=== PATIENT | female | born 2005 | race Caucasian/White ===

== ENCOUNTER 2025-02-28 13:46 | Outpatient (AMB) | payer BC, SELFPAY ==
--- NOTE | 2025-02-28 14:04 | MHC.PC.OV ---
Vital Signs 02/28/25 14:16 Height 5 ft 4 in Weight 130 lb 4 oz BMI 22.4 BP 100/72 Blood Pressure Location Rt brachial Position Sitting Pulse 115 H Pulse Source Pulse Oximeter Temp 99.5 F Temp Source Temporal Artery Scan Pulse Oximetry (%) 98 Oxygen Delivery Method Room Air Intake Visit Reasons: Neurological disorder Intake Note: Jessica presents in the office today to establish care. Allergies No Known Allergies Allergy (Verified 02/28/25 14:07) Tobacco use date assessed: 02/28/25 Dental Screening Dental Screen Date: 02/28/25 Did you have a dental visit in the last 12 months?: Yes Did you have a dental problem in the last 6 months where you did not have access to dental care?: No Was dental information given to patient?: Patient has dentist HPI HPI Comments History of Present Illness Details This is a 19-year-old female with a past medical history of a functional neurologic disorder, anxiety disorder and seizures presenting to establish care. She is accompanied by her mother. I reviewed notes from Pediatrics. In October of 2020 she had a sudden onset of abnormal head and neck movements in the setting of increased anxiety. She was initially evaluated at the emergency department at [facility] with normal head and neck imaging. 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 She was treated with amoxicillin without resolution. Tics worsened including head banging and behavior changes and problems with speech and hand coordination. She started Prozac and was followed by integrative medicine. 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 In February she began to have seizure-like activity and was referred to Neurology. Differential included autoimmune encephalitis. She had a normal brain MR high and normal as encephalitis panel. She was seen at [facility] fall 2020. PANDAS thought to be unlikely. She was tapered off Prozac and put on fluvoxamine. She started guanfacine and stopped all antibiotics. She began working with occupational therapy. Working diagnosis of functional neurologic disorder. Sought multidisciplinary approach including Psychiatry, PT and OT. Also treated with the [facility]abella in the past. Attacks worsened by anxiety and stress but not directly caused by anxiety, instead maladaptive responses to major stressors. Since that time she has continued to have seizures once or twice a week. She has new concerns today about her heart rate. For the past couple of months she is experiencing increased heart rate. Heart rate has been as 170 and sustained this for at least 10 minutes. Reports heart rate increases when she stands up and she feels lightheaded and gets chest pain and mild shortness of breath. Patient reports device shows increase in heart rate when she stands by 30 beats per minute. When she was walking in here reports heart rate on her device was between 120-140. She went to urgent care at [facility] in [place] for symptoms. Reports she had an EKG and lab work. Denies syncope, nausea. Her paternal grandfather has cardiovascular disease. No family history of early CAD or sudden . Her brother has type 1 diabetes. She has been drinking water and eating regular meals. She avoids caffeine. She works as a hot dog vendor. She has and accommodation letter to have a stool at work. I renewed this for her today. She has a history of psoriasis. She does not have a sander and buffer currently. She would like to be seen at [facility]. She notices a lump in her neck for the past couple of months. It is not painful. ROS: Constitutional: No unexplained weight loss, fever, chills or night sweats. +fatigue Eyes: No vision changes, blurry vision, double vision Respiratory: Denies cough or wheezing Cardiovascular: See HPI. Gastrointestinal: No anorexia, nausea, vomiting or diarrhea. No abdominal pain or blood in stool. Neurologic: See HPI. Hematologic/Lymphatics: No bleeding or bruising. Endocrine: No cold or heat intolerance. No polyuria or polydipsia. Psychiatric: see HPI Physical exam: Constitutional: Alert, in no distress. Eyes: Pupils are equal, round and reactive to light. Extraocular muscles intact. Ear, Nose and Throat: Canals clear. TMs normal. Normal nasal mucosa. No nasal discharge. No oral lesions. Neck: Supple, Full range of motion. 1 cm rubbery nontender lump in the left submental region. Thyroid gland mildly enlarged Respiratory: Clear to auscultation. Cardiovascular: S1 S2 regular. No murmurs. Gastrointestinal: Abdomen soft, non-tender, non-distended. Normal bowel sounds. No palpable masses. Neurologic: No focal neurological deficits. Symmetric patellar reflexes. Moves all extremities spontaneously. Sensation intact bilaterally. Skin: Psoriatic plaques on the extensor surfaces of the upper extremities and on the scalp Extremities: Warm and well perfused. No clubbing, cyanosis or edema. Intact peripheral pulses Psychiatric: Normal mood and affect [facility] Medical History (Updated 03/01/25 @ 16:50 by TRES Kirkpatrick) Functional neurological symptom disorder with attacks or seizures Seizure disorder Anxiety Psoriasis Mass of soft tissue of neck Thyromegaly Chest pain Tachycardia Family History (Updated 02/28/25 @ 14:14 by Lexi De Leon MA) Maternal Grandfather Hypertension Hyperlipemia Paternal Grandfather Hypertension Brother Diabetes Social History (Updated 02/28/25 @ 14:14 by Lexi De Leon MA) Housing: House Alcohol intake: never Patient Tobacco Use Status: Never used Tobacco e-Cigarette/Vaping Use: Never Used Second Hand Smoke Exposure: No service: No Current occupational status: employed Current occupation: [employer] Manager Current occupational exposures/hazards: No Cognitive needs: No Hearing needs: No Vision needs: No Questionnaire PHQ-9 Over the last 2 weeks, how often have you been bothered by any of the following problems? 1. Little interest or pleasure in doing things: not at all 2. Feeling down, depressed, or hopeless: not at all 3. Trouble falling or staying asleep, or sleeping too much: more than half the days 4. Feeling tired or having little energy: nearly every day 5. Poor appetite or overeating: several days 6. Feeling bad about yourself - or that you are a failure or have let yourself or your family down: more than half the days 7. Trouble concentrating on things, such as reading the newspaper or watching television: not at all 8. Moving or speaking so slowly that other people could have noticed. Or the opposite - being so fidgety or restless that you have been moving around a lot more than usual: not at all 9. Thoughts that you would be better off or of hurting yourself in some way: not at all Total score: 8 Depression Screening Interpretation: Positive Depression Screening Follow-up: Existing condition Depression Screening Done: Yes 90263 - PHQ-9 Billing: Yes Source: Developed by Drs. Rodolfo Short, Niya Vallejo, Kevin Alves and colleagues, with an educational marisa from [employer]. Thrive Questionnaire Date Thrive assessed: 02/28/25 I am a: Patient What is your living situation today?: I have a steady place to live Within the past 12 months, did the food you bought not last and you didn't have the money to get more?: Never true Within the past 12 months, did you worry whether your food would run out before you got money to buy more?: Never true Do you have trouble paying for medicines?: No Do you have trouble getting transportation to medical appointments?: No Do you have trouble paying your heating and electricity bill?: No Do you have trouble taking care of your child, family member or friend?: No Do you have trouble with day-to-day activities such as bathing, preparing meals, shopping, managing finances, etc.?: No Are you currently unemployed and looking for a job?: No Are you interested in more education?: No Please select the resources that you would like help with: None Currently or been in a relationship where the following occur: No concerns reported THRIVE Score: 0 AUDIT C Alcohol Use Questionnaire (AUDIT-C) 1. How often do you have a drink containing alcohol?: Monthly or less 2. How many drinks containing alcohol do you have on a typical day when you are drinking?: 1 or 2 3. How often do you have six or more drinks on one occasion?: Never Total Score: 1 MARY JO-7 AMB Questionnaire MARY JO-7 Date MARY JO - 7 assessed: 02/28/25 Feeling nervous, anxious, or on edge: 2 = More than half the days Not being able to stop or control worryin = Several days Worrying too much about different things: 2 = More than half the days Trouble relaxin = Not at all Being so restless that it is hard to sit still: 1 = Several days Becoming easily annoyed or irritable: 1 = Several days Feeling afraid as if something awful might happen: 0 = Not at all Total MARY JO-7 score (0-4 normal; 5-9 mild; 10-14 moderate; 15-21 severe): 7 Source: Developed by Drs. Rodolfo Short, Niya Vallejo, Kevin Alves and colleagues, with an educational marisa from [employer]. MARY JO-7 Assessment Billing MARY JO-7 Assessment Tool: MARY JO-7 Assessment 12461 ACT Questionnaire In the past 4 weeks, how much of the time did your asthma keep you from getting as much done at work, school or at home?: None of the time During the past 4 weeks, how often have you had shortness of breath?: More than once a day During the past 4 weeks, how often did your asthma symptoms wake you up at night or earlier than usual in the morning?: Not at all During the past 4 weeks, how often have you had to use your rescue inhaler or nebulizer medication?: Not at all How would you rate your asthma control during the past 4 weeks?: Completely controlled Score: 21 Physical exam (Primary Care) Vital Signs: Last Vital Signs Temp 99.5 F 02/28/25 14:16 Pulse 115 H 02/28/25 14:16 BP 100/72 02/28/25 14:16 Pulse Ox 98 02/28/25 14:16 Oxygen Delivery Method Room Air 02/28/25 14:16 BMI result Body Mass Index 22.4 Tobacco/Smoking Status: Tobacco use Status Tobacco use date assessed 02/28/25 02/28/25 14:20 Patient Tobacco Use Status Never used Tobacco 02/28/25 14:20 e-Cigarette/Vaping Use Never Used 02/28/25 14:20 PHQ-9: PHQ-9 Score PHQ-9: Total score 8 02/28/25 17:26 Depression Screening Interpretation: Positive Depression Screening Follow-up: Existing condition Thrive Assessment: Date of Thrive Assessment Date Thrive assessed 02/28/25 02/28/25 14:20 Currently or been in a relationship where the following occur: No concerns reported Office Procedures EKG Details: EKG shows normal sinus rhythm and ventricular rate of 93 beats per minute [id number], Complete Coding Level of Care Code New Pt Level 4 (18965) Complex EM visit Add On G2211 Diagnoses Tachycardia R00.0 Chest pain R07.9 Thyromegaly E01.0 Anxiety F41.9 Psoriasis L40.9 Mass of soft tissue of neck M79.89 Functional neurological symptom disorder with attacks or seizures F44.5 CPT Codes EKG - CPT: 52153-[id number], Complete ([id number]) Additional Codes MARY JO-7 Assessment Billing - MARY JO-7 Assessment Tool: MARY JO-7 Assessment 51720 ([id number]) PHQ-9 - 25434 - PHQ-9 Billing: Yes ([id number]) Assessment & Plan Assessment & Plan (1) Tachycardia: Code(s): R00.0 - Tachycardia, unspecified Category: Medical Plan: EKG today shows normal sinus rhythm. Initially she did have mild tachycardia. Differential includes POTS, hyperthyroidism, anxiety causing sinus tachycardia, SVT. Holter monitor ordered. Refer to Cardiology. Warning signs warranting ER evaluation reviewed with the patient. Avoid caffeine, stimulants and alcohol. Stay well hydrated throughout the day and eat regular meals. Reviewed the importance of stress reduction and sleep. (2) Chest pain: Code(s): R07.9 - Chest pain, unspecified Category: Medical Plan: Associated with tachycardia. EKG shows no ischemic changes or heart block. Proceed with echocardiogram and cardiology consult. Check D-dimer, troponin, BNP. (3) Thyromegaly: Code(s): E01.0 - Iodine-deficiency related diffuse (endemic) goiter Category: Medical Plan: Ultrasound ordered. (4) Anxiety: Code(s): F41.9 - Anxiety disorder, unspecified Category: Medical Plan: We will discuss referral to Psychiatry/Psychology for multidisciplinary approach at her next visit. Check TSH. (5) Psoriasis: Code(s): L40.9 - Psoriasis, unspecified Category: Medical Plan: Refer to [facility]. (6) Mass of soft tissue of neck: Code(s): M79.89 - Other specified soft tissue disorders Category: Medical Plan: Ultrasound ordered. Check CBC and TSH. (7) Functional neurological symptom disorder with attacks or seizures: Code(s): F44.5 - Conversion disorder with seizures or convulsions Category: Medical Plan: Patient underwent extensive workup and was ultimately given working diagnosis of functional neurologic disorder by [facility] Neurology. She does not have a neurologist that she sees routinely anymore. Refer to [facility]. We will need to obtain notes from [facility]. Plan Follow up in 6 weeks. Orders: Orders Vitamin B12 and Folate 02/28/25 D64.9 - Anemia, unspecified, R00.0 - Tachycardia, unspecified, R07.9 - Chest pain, unspecified, R53.83 - Other fatigue TSH reflex Free T4 02/28/25 R00.0 - Tachycardia, unspecified, R07.9 - Chest pain, unspecified, R53.83 - Other fatigue Complete Blood Count Auto Diff 02/28/25 R00.0 - Tachycardia, unspecified, R07.9 - Chest pain, unspecified, R53.83 - Other fatigue B Type Natriuretic Peptide 02/28/25 E11.9 - Type 2 diabetes mellitus without complications, R00.0 - Tachycardia, unspecified, R07.9 - Chest pain, unspecified, R53.83 - Other fatigue US soft tiss head and/or neck 02/28/25 M79.89 - Other specified soft tissue disorders ECG holter monitor 48 hour Today R00.0 - Tachycardia, unspecified AMB EKG-In Office 02/28/25 R00.0 - Tachycardia, unspecified Vitamin D 25-OH (D2 and D3) 02/28/25 M85.80 - Other specified disorders of bone density and structure, unspecified site, R00.0 - Tachycardia, unspecified, R07.9 - Chest pain, unspecified, R53.83 - Other fatigue Ferritin 02/28/25 D64.9 - Anemia, unspecified, R00.0 - Tachycardia, unspecified, R07.9 - Chest pain, unspecified, R53.83 - Other fatigue Magnesium 02/28/25 R00.0 - Tachycardia, unspecified, R07.9 - Chest pain, unspecified, R53.83 - Other fatigue IRON PROFILE 02/28/25 D64.9 - Anemia, unspecified, R00.0 - Tachycardia, unspecified, R07.9 - Chest pain, unspecified, R53.83 - Other fatigue Comprehensive Met. Panel 02/28/25 R00.0 - Tachycardia, unspecified, R07.9 - Chest pain, unspecified, R53.83 - Other fatigue Troponin-I High Sensitivity 02/28/25 R00.0 - Tachycardia, unspecified, R07.9 - Chest pain, unspecified, R53.83 - Other fatigue D Dimer High Sensitivity 02/28/25 R00.0 - Tachycardia, unspecified, R07.9 - Chest pain, unspecified, R53.83 - Other fatigue Lyme IgG/IgM w/reflex to WB 02/28/25 R00.0 - Tachycardia, unspecified, R07.9 - Chest pain, unspecified, R53.83 - Other fatigue CA echo transthoracic complete 02/28/25 R00.0 - Tachycardia, unspecified, R07.9 - Chest pain, unspecified US thyroid 02/28/25 E01.0 - Iodine-deficiency related diffuse (endemic) goiter, R00.0 - Tachycardia, unspecified, R07.9 - Chest pain, unspecified Referrals Cardiology Referral R00.0 - Tachycardia, unspecified, R07.9 - Chest pain, unspecified Neurology Referral F44.5 - Conversion disorder with seizures or convulsions Dermatology Referral L40.9 - Psoriasis, unspecified
[2025-02-28 14:16] VITALS: BP 100/72; PULSE 115; TEMP 37.5; O2SAT 98; BMI 22.4
--- OUTSIDE RECORDS SUMMARY | 2025-02-28 14:59 | XMS_ITS | Clinical Summary ---
Author Organization [facility] Address [address] [place] [address] Phone Care Team Providers Care Pigskin Trimmer Name Role Phone Unavailable Primary Care Provider Unavailabl e Allergies Active Allergy Reactions Criticality Noted Date Comments Environmental 04/08/2021 Medications hydrOXYzine 25 MG tabletIndications:An xiety Take 1 tablet (25 mg total) by mouth 3 (three) times a day as needed for anxiety. 30 tablet 4 Active Levocetirizine Dihydrochloride (XYZAL PO) Take by mouth. Active Isibloom 0.15-30 MG-MCG per tabletIndications:Pa inful menstruation TAKE 1 TABLET BY MOUTH DAILY 84 tablet 5 Active Active Problems Problem Noted Date Diagnosed Date Scoliosis concern 07/04/2024 Overview (07/04/2024): Mild asymmetry- many years post menarchal. 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 [facility] ER normal head and neck imaging. 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 Tics worsened-all over, head banging, behavior changes, significant anxiety and mood changes, problems with speech and hand coordination. Started prozac to help with her mood. Followed by integrative medicine Dr. Roth for a short while. 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 treated with multiple rounds of different abx. Thought could be due to many different allergies. Treated with atovaquone. 03/02: began to have seizure like activity. referral to [facility] neurology-ddx autoimmune encephalitis. Normal brain MRI and normal encephalitis panel. 06/02-08/02: [facility] tic clinic Dr. Vallejo-unlikely PANDAs, taper off prozac not helpful and start fluvoxamine. Start guanfacine. Stop all abx. Working with OT. 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 neurology Dr. Dennis. 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 Multidisciplinary treatment approach: psychiatry to treat underlying depression/anxiety, PT and OT to work through triggers, behavioral therapists. 12/01: Dr. Dennis dx functional movement disorder. Share features with tics, worsened by anxiety and stress but not directly caused by anxiety, instead maladaptive responses to major stressors cause changes in brain function. Continue working with OT/PT to recognize triggers and learn adaptive skills, add in CBT. 07/04/24: having seizures 1-2x a week. Encouraged to make a follow up appt with Neuro. Assessment & Plan (07/04/2024 8:45 AM EDT): Has not seen neuro in a few days years. Seizures triggered by stress or not eating. Last seizure a couple days ago. Having them 1-2x a week which is a slight increase over the past couple months. Patient encouraged to call Neuro to make a follow up appointment. Assessment & Plan (04/19/2023 1:35 PM EDT): Doing very well currently, working with Dad Assessment & Plan (02/03/2022 2:14 PM EDT): Followed by [facility] tic and movement clinic and neurology; Dr. Dennis and Dr. Vallejo. Dx of functional movement disorder. Much improved this past year. Tics mostly confined to head and neck now and decreasing in frequency. Had another episode of fainting in the winter, nonepileptic seizures can be part of the disorder as well. Was on guanfacine but recent issue with filling it and ultimately stopped it. Feels fine without it. OT next visit in February. Continue follow ups with specialists as scheduled. Generalized anxiety disorder 10/06/2021 Overview (12/24/2021): 11/02-06/02: prozac up to 40mg. 08/02: per [facility] Dr. Vallejo taper off prozac and start Fluvoxamine, dosing guidelines per MCPAP. 12/01: 150mg fluvoxamine. Has therapist and may be in with psychiatrist soon. 01/01: per Dr. Dennis [facility] neuro, thinks increase in fluvoxamine caused increased hyperreflexia and recommended titrating back down to 100mg. Waiting on psychiatry. Assessment & Plan (07/04/2024 8:44 AM EDT): SSRIs stopped last year- no longer seeing psychiatrist. Feeling well. PHQ 9 score 2. Taking hydroxyzine only as needed. Refilled to have in times of stress to help minimize risk of seizures due to stress. Assessment & Plan (04/19/2023 1:35 PM EDT): Seeing Herlinda Shields, overcoming well Assessment & Plan (10/01/2022 11:30 AM EST): Doing really well. meds managed by psychiatrist now. Remains on fluvoxamine. Assessment & Plan (02/03/2022 2:15 PM EDT): Much improved over the year on Luvox. Titrated down to 100mg last month. Therapist every other week now. Feels she is doing much better. Enjoys the therapy sessions. Discussed option of continuing to titrate down as she feels fit. Keep me updated, and if interested can try a decrease down to 75mg. Ok to keep filling and will recheck end of summer at next [facility]. 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 10/03: start OCP Apri. 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 Periods consistent and pain has improved. Taking Midol which helps. Assessment & Plan (04/19/2023 1:37 PM EDT): OCP, has not had a period in 2 months, not sexually active, wants to get the implnat, sending to OBGYN- gave Jessica the number. Assessment & Plan (02/03/2022 2:11 PM EDT): Well managed on OCPs. Ok continuing to fill. Assessment & Plan (04/08/2021 3:02 PM EDT): Has repeat ovarian u/s next week. Discussed possibility of starting OCPs to help manage. She does admit to migraines with auras so will likely need to stay away from estrogen containing pills. Assessment & Plan (03/12/2021 1:02 PM EDT): We will repeat her ovarian ultrasound in 4-6 weeks due to left ovarian cyst. This could be causing her painful periods. Discussed that they can resolve on their own and would treat with nsaids, however if persistent can treat with OCPs. Sebopsoriasis 03/25/2016 Assessment & Plan (04/19/2023 1:37 PM EDT): Clobetasol works well Assessment & Plan (04/09/2020 2:25 PM EDT): Waiting to hear back for rescheduled derm apt. Uses fluocinolone scalp oil as needed Resolved Problems Problem Noted Date Diagnosed Date Resolved Date Cat bite of hand, left, initial encounter 04/14/2023 04/19/2023 Assessment & Plan (04/19/2023 1:35 PM EDT): On Augmentin, healing nicely Panic disorder 10/06/2021 04/19/2023 Abnormal ECG 04/03/2021 12/11/2021 Overview (12/11/2021): Abnormal EKG when on zpack, prolonged QT, resolved. Normal EKG 04/01. Behavior concern 03/03/2021 12/11/2021 Other insomnia 03/03/2021 04/19/2023 Overview (12/11/2021): Trial of trazodone by Dr. Roth Assessment & Plan (04/08/2021 3:01 PM EDT): Stopped the trazodone, sleeping better these days. Assessment & Plan (03/12/2021 1:01 PM EDT): Neurologist started her on trazodone last week and she is finally sleeping. Previously was taking hydroxyzine and was not able to sleep with that. Motor and vocal tic disorder 11/24/2020 12/11/2021 Assessment & Plan (04/08/2021 3:01 PM EDT): Followed by [facility] neurology, cardiology, and integrative medicine-working diagnosis of PANDAS. Will have apt at [facility] with tic specialist. Brain MRI normal, EKG normal, EEG normal, autoimmune encephalitis panel normal. Restarted zpack yesterday which in the past did seem to help symptoms but had to stop it due to a prolonged QT but was just cleared by cardiology to restart it. New medication cyproheptadine recently added in to help increase her appetite. Has follow up with Dr. Roth this week and mom will reach out to [facility] to plan next follow up. Assessment & Plan (03/12/2021 1:03 PM EDT): Motor and vocal tics have continued to progress these last 4-5 months, with maybe a little lessening since school has let out this past month. Most recently evaluated at [facility] neurology on 03/03/21 and underwent a brain MRI under sedation which was found to be normal for a working diagnosis of autoimmune encephalitis. An ovarian ultrasound was also done to rule out ovarian teratoma as those can be seen with autoimmune encephalitis. An incidental finding of ovarian cyst on the left was found and will plan to repeat the ultrasound in 4-6 weeks. She has undergone significant testing through integrative medicine in [place] and being treated for lyme and allergies. We will repeat her EKG due to prior prolonged QT interval. In the last week she also started having seizure like movements, and will have an EEG next week-its possible these could be vasovagal as she admits to not eating and drinking much these days and occur after long walks or a hike, are brief, and she is aware of what is happening. All in all, still unsure of the exact cause of these debilitating and progressive abnormal movements. She has a follow [facility] next week and a follow up [facility] with [facility] end of this month. Assessment & Plan (11/24/2020 4:40 PM EDT): Follow up with integrative medicine as scheduled on 11/26 to review abnormal labs. Continue taking augmentin daily and probiotics. Mom will ask if the difficulty with speech following naltrexone is a common side effect or something we need to be mindful of as I do not have any experience with this medication. Overall tics are lessening but come in waves. Continue with ongoing family and social supports, accommodations from school as needed. Feel free to reach out to me as questions arise or any new concerns. Encounters Date Type Department Care Team Description 01/24/2025 Telephone [facility] [address] [id number] Tamika Esparza NP Release of Records 12/12/2024 Refill [facility] [address] [id number] Keiry Melissa NP Painful menstruation from Last 3 Months Immunizations Immunization Administration Dates Next Due DTaP 03/06/2009, 5,03/31/2004, 004,2003 HPV Vaccine 9 Valent 03/19/2016,05/20/2015,03/18 Hep A, ped/adol 03/30/2018,03/28/2017 Hep B, ped/adol 07/13/2004,2003,2003 Hib (PRP-T) 01/05/2005, 4,01/28/2004, 004 IPV 03/06/2009, 4,01/28/2004, 004 Influenza, injectable, quadrivalent 08/16/2011 MMR 03/05/2008,09/29/2004 Meningococcal Conj (Menactra) MCV4P 04/09/2020,0 03/18/2015 Tdap 04/15/2023,03/18/2015 Varicella 03/05/2008,09/29/2004 Family History Medical History Relation Name Comments No Known Problems Brother Asthma Father No Known Problems Maternal Grandfather No Known Problems Maternal Grandmother Eczema Mother No Known Problems Paternal Grandfather Psoriasis Paternal Grandmother Relation Name Status Comments Brother Alive Father Alive Maternal Grandfather Alive Maternal Grandmother Alive Mother Alive Other Alive Paternal Grandfather Alive Paternal Grandmother Alive Social History Tobacco Use Types Packs/Day Years Used Date Smoking Tobacco: Never Smokeless Tobacco: Never Alcohol Use Standard Drinks/Week Comments Yes 0 (1 standard drink = 0.6 oz pur e alcohol) maybe monthly- socially Hunger/Food Answer Date Recorded In the last 12 months, did y ou or your family ever eat less than you felt you should because there wasn't enough money for food? No 07/02/2024 Stable Housing Answer Date Recorded Are you worried that in the next 2 months you may not have stable housing? No 07/02/2024 Transportation Concerns Answer Date Rec orded In the last 12 months, have you or your family ever had to go without healthcare because you didn't have a way to get there? No 07/02/2024 Hazards in Home Answer Date Recorded Think about the place you li ve. Do you have problems with any of the following? Pests (mice or roaches), mold, no/not working smoke detectors, water leaks, no window guards. No 2023 Financing Utilities Answer Date Recorde d In the last 12 months, has t he electric, gas, oil, or water company threatened to shut off your services in your home? No 07/02/2024 Safety at Home Answer Date Recorded Are you or your family worried about feeling saf e in your home? No 07/02/2024 Outside Support Answer Date Recorded Do you feel that you need mo re support from other people or programs to help you care for yourself or your family? No 07/02/2024 Understanding Health Concerns Answer Da te Recorded Do you need help understandi ng your or your child's healthcare needs (diagnosis, medications, plan, etc.)? No 07/02/2024 Financing Health Concerns Answer Date R ecorded In the last 12 months, was t here a time when your child needed to see a doctor or get medications or supplies but could not because of cost? No 07/02/2024 Missing School or Work Answer Date Slim rded Did you or your child miss s chool or work because of a health problem that could have been avoided? No 07/02/2024 Child Education Answer Date Recorded Do you have concerns about y our/your child's learning or behavior in school, preschool, or daycare? No 07/02/2024 Comments No Sex and Gender Information Value Date Recorded Sex Assigned at Not on file Legal Sex Female 6:09 PM EDT Gender Identity Female 11/06/2020 6:38 PM EST Sexual Orientation Straight 04/09/2020 2: 24 PM EDT Last Filed Vital Signs Vital Sign [place] Time Taken Comments Blood Pressure 112/64 07/04/2024 8:31 AM EDT Pulse - - Temperature 37.1 C (98.7 F) 04/14/2023 6:35 PM EDT Respiratory Rate - - Oxygen Saturation - - Inhaled Oxygen Concentration - - Weight 61.8 kg (136 lb 3.2 oz) 07/04/2024 8:31 A M EDT Height 163.8 cm (5' 4.5 ) 07/04/2024 8:31 AM EDT Body Mass Index 23.02 07/04/2024 8:31 AM EDT Plan of Treatment Health Maintenance Due Date Last Done Comments Men B Vaccine (1 of 2 - Standard) 2019 Influenza Vaccines (#1) 2024 08/16/2011 COVID-19 Vaccine (1 - season) 2024 DTaP,Tdap,and Td Vaccines (8 - Td or Tdap) 04/15/2033 04/15/2023, 03/18/2015, 03/06/2009, Additional history exists Hepatitis B Vaccines Completed 07/13/2004, 2003, 2003 HIB Vaccines Completed 01/05/2005, 03/13, 01/28/2004, Additional history exists MMR Vaccines Completed 03/05/2008, 09/29/2004 Varicella Vaccines Completed 03/05/2008, 09/29/2004 IPV Vaccines Completed 03/06/2009, 11/0 09/2003, 01/28/2004, Additional history exists HPV Vaccines Completed 03/19/2016, 04/2015, 03/18/2015 Hepatitis A Vaccines Completed 03/30/2018, 03/28/20 17 Meningococcal Vaccine Completed 04/09/2020, 015 Pneumococcal Vaccine Aged Out No long er eligible based on patient's age to complete this topic Procedures * Due to [place] [employer] law, this organization might not be sharing sensitive test results. Procedure Name Priority Date/Time Associated Diagnosis Comments CHLAMYDIA AND GONORRHEA, AMPLIFIED Routine 07/04/2024 8:37 AM EDT Well adult exam from Last 3 Months or Most Recently Relevant to Health Maintenance Results * Due to [place] [employer] law, this organization might not be sharing sensitive test results. * Chlamydia and Gonorrhea, Amplified (07/04/2024 8:37 AM EDT) C trach MARCELLE Negative Negative [facility] N gonorrhoeae MARCELLE Negative Negative [facility] Urine (Urine) 07/04/2024 8:3 7 AM EDT 07/04/2024 Comment:URINE Narrative [facility] - 07/05/2024 9:06 PM EDT Performed at: 01 - [facility] [address], [address], [place], [place] [id number] Metallurgical Laboratory Assistant: Joe Hinojosa MD, Phone: [phone] Keiry Melissa NP LAB MICROBIOLOGY - GENERAL O RDERABLES Final Result [facility] [address] [place] [address] from Last 3 Months or Most Recently Relevant to Health Maintenance Insurance [employer]
== END 2025-02-28 15:08 | disposition home or self-care (01) ==
LOC: HO.HMCFM 13:46
PROVIDERS: PCP Physician Assistant Medical; Visit Provider Physician Assistant Medical
DX: R00.0 Tachycardia, unspecified (principal); R07.9 Chest pain, unspecified; E01.0 Iodine-deficiency related diffuse (endemic) goiter; F41.9 Anxiety disorder, unspecified; L40.9 Psoriasis, unspecified; M79.89 Other specified soft tissue disorders; F44.5 Conversion disorder with seizures or convulsions

== ENCOUNTER → 2025-02-28 13:46 | Outpatient (BNVA) | payer BC, SELFPAY | PROVIDERS: PCP Physician Assistant Medical; Visit Provider Physician Assistant Medical | DX: Z76.89 Persons encountering health services in other specified circumstances (principal); R00.0 Tachycardia, unspecified; R07.9 Chest pain, unspecified; E01.0 Iodine-deficiency related diffuse (endemic) goiter; F41.9 Anxiety disorder, unspecified; L40.9 Psoriasis, unspecified; F44.5 Conversion disorder with seizures or convulsions; M79.89 Other specified soft tissue disorders; Z13.30 Encounter for screening examination for mental health and behavioral disorders, unspecified; Z13.31 Encounter for screening for depression | CPT/HCPCS: 93005; 96127; 96160 ==

== ENCOUNTER 2025-02-28 15:28 | Outpatient (REF) | payer BC, SELFPAY ==
[2025-02-28 17:26] LABS: MANUAL DIFF FLAG NO
[2025-02-28 17:34] LABS: B Type Natriuretic Peptide < 10 pg/mL (<100)
[2025-02-28 17:47] LABS: Basophils Percent Auto 0.4 % (0-2); Eosinophils Absolute Auto 0.2 X10*3/uL (0.0-0.4); Eosinophils Percent Auto 2.6 % (0-4); Hemoglobin 12.4 g/dl (12.0-16.0); Imm Gran Abs Auto 0.04 X10*3/uL (0.00-0.03); Imm Gran Pct Auto 0.5 % (0.0-0.4); Lymphocytes Percent Auto 24.4 % (20-40); Mean Corpuscular HGB Conc 32.6 g/dl (31.0-35.0); Mean Corpuscular Hemoglobin 27.1 pg (27.0-33.0); Mean Platelet Volume 9.5 fL (9.4-12.3); Monocytes Absolute Auto 0.5 X10*3/uL (0.1-1.2); Monocytes Percent Auto 6.1 % (2-11); Neutrophils Absolute Auto 5.4 x10*3/uL (2.0-8.3); Platelet Count 348 X10*3/uL (160-400); Red Blood Count 4.58 X10*6/uL (4.20-5.50); Red Cell Distribution Width 13.2 % (11.0-16.0); White Blood Count 8.2 X10*3/uL (4.8-10.8)
[2025-02-28 17:59] LABS: Troponin-I High Sensitivity < 2.7 ng/L (<3.5-17.0)
[2025-02-28 18:01] LABS: D Dimer High Sensitivity < 150 NG/ML
[2025-02-28 18:05] LABS: Alanine Aminotransferase 16 U/L (0-31); Albumin Level 4.3 g/dL (3.5-5.0); Alkaline Phosphatase 49 U/L (39-117); Anion Gap 10 (12-20); Aspartate Amino Transferase 21 U/L (5-31); Bilirubin Total 0.2 mg/dL (0.0-1.0); Blood Urea Nitrogen 11 mg/dL (9-16); Calcium 9.5 mg/dL (8.4-10.2); Carbon Dioxide 25 mmol/L (22-29); Chloride 108 mmol/L (96-108); Estimated Glomerular Filt Rate > 60; Glucose Random 74 mg/dL (60-115); Iron 69 mcg/dL (30-160); Magnesium 2.2 mg/dL (1.6-2.6); Percent Iron Saturation 16 % (15-50); Potassium 3.8 mmol/L (3.3-5.1); Sodium 139 mmol/L (135-145); Total Iron Binding Capacity 424 mcg/dL (228-428); Total Protein 7.8 g/dL (6.5-8.0); Unsaturated Iron Binding 355 ug/dL
[2025-02-28 18:23] LABS: Ferritin 6 ng/mL (10-122); TSH reflex Free T4 1.19 uIU/mL (0.32-4.0)
[2025-02-28 18:26] LABS: Vitamin B12 328 pg/mL (200-900)
[2025-03-01 17:38] LABS: Lyme Abs Screen <0.90 index
[2025-03-04 15:52] LABS: Vitamin D 25-OH, D2 <4 ng/mL; Vitamin D 25-OH, D3 74 ng/mL; Vitamin D 25-OH, Total 74 ng/mL (30-100)
== END 2025-02-28 15:29 | disposition home or self-care (01) ==
LOC: HO.WFDLDS 15:28
PROVIDERS: Visit Provider Physician Assistant Medical
DX: E11.9 Type 2 diabetes mellitus without complications (principal); M85.80 Other specified disorders of bone density and structure, unspecified site; D64.9 Anemia, unspecified; R53.83 Other fatigue; R07.9 Chest pain, unspecified; R00.0 Tachycardia, unspecified
CPT/HCPCS: 36415; 80053; 82306; 82607; 82728; 82746; 83540; 83735; 83880; 84443; 84484; 85025; 85379; 86617; 86618

== ENCOUNTER → 2025-03-18 13:03 | Outpatient (REF) | payer BC, SELFPAY ==
--- NOTE | 2025-03-18 13:07 | HM_ITS ---
* Total monitoring time 2 days. * Underlying rhythm is sinus with an average rate of 84/Min. * Rare supraventricular ectopy. * Rare ventricular ectopy. * No significant pauses or high-grade AV blocks. * Patient markers used with sinus rhythm. * Patient's symptoms including heart racing, dizziness, lightheadedness, shortness of breath, chest tightness, tunnel vision correlate with sinus tachycardia. MTDD
--- OUTSIDE RECORDS SUMMARY | 2025-03-18 13:31 | XMS_ITS | Clinical Summary ---
Author Organization [facility] Address [address] [place] [address] Phone Care Team Providers Care Plastic Block Boiler Reliner Name Role Phone Unavailable Primary Care Provider [...] movements in the setting of increased anxiety. [facility] ER normal head and neck imaging. [...] to have seizure like activity. referral to [facility] neurology-ddx autoimmune encephalitis. Normal brain MRI and normal encephalitis panel. 06/02-08/02: [facility] [place] [place] tic clinic Dr. Vallejo-unlikely PANDAs, taper off prozac not helpful and start fluvoxamine. Start guanfacine. Stop all abx. Working with OT. 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 Dennis. Working dx likely functional [...] Plan (02/03/2022 2:14 PM EDT): Followed by [facility] tic and movement clinic and neurology; Dr. [...] 11/02-06/02: prozac up to 40mg. 08/02: per [facility] [place] [place] Dr. Vallejo taper off prozac and start Fluvoxamine, dosing guidelines per MCPAP. 12/01: 150mg fluvoxamine. Has therapist and may be in with psychiatrist soon. 01/01: per Dr. Dennis [facility] [place] [place] neuro, thinks increase in fluvoxamine caused increased [...] will recheck end of summer at next [facility]. 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 10/03: start OCP Apri. 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 Periods [...] Plan (04/08/2021 3:01 PM EDT): Followed by [facility] neurology, cardiology, and integrative medicine-working diagnosis of PANDAS. Will have apt at [facility] with tic specialist. Brain MRI normal, EKG [...] week and mom will reach out to [facility] to plan next follow up. Assessment & Plan (03/12/2021 1:03 PM EDT): Motor and vocal tics have continued to progress these last 4-5 months, with maybe a little lessening since school has let out this past month. Most recently evaluated at [facility] neurology on 03/03/21 and underwent a brain [...] undergone significant testing through integrative medicine in [place] and being treated for lyme and allergies. [...] She has a follow up apt with [facility] next week and a follow up [facility] with [place] end of this month. Assessment & Plan [...] Team Description 01/24/2025 [facility]phone [facility] [address] [address] Tamika Esparza NP Release of Records from Last 3 Months Immunizations Immunization Administration [...] Vaccine (1 of 2 - Standard) 2019 COVID-19 Vaccine (1 - season) 2024 Influenza Vaccines (#1) 2025 08/16/2011 DTaP,Tdap,and Td Vaccines (8 - Td or Tdap) 04/15/2033 04/15/2023, 03/18/2015, 03/06/2009, Additional history exists Hepatitis B Vaccines Completed 07/13/2004, 2003, 2003 HIB Vaccines Completed 01/05/2005, 03/13, 01/28/2004, Additional history exists MMR Vaccines Completed 03/05/2008, 09/29/2004 Varicella Vaccines Completed 03/05/2008, 09/29/2004 IPV Vaccines Completed 03/06/2009, 09/2003, 01/28/2004, Additional history exists HPV Vaccines Completed 03/19/2016, 04/2015, 03/18/2015 Hepatitis A Vaccines Completed 03/30/2018, 03/28/20 17 Meningococcal Vaccine Completed 04/09/2020, 015 Pneumococcal Vaccine Aged Out No long er eligible based on patient's age to complete this topic Procedures * Due to [place] [employer] law, this organization might not be sharing sensitive test results. Procedure Name Priority Date/Time Associated Diagnosis Comments CHLAMYDIA AND GONORRHEA, AMPLIFIED Routine 07/04/2024 8:37 AM EDT Well adult exam from Last 3 Months or Most Recently Relevant to Health Maintenance Results * Due to [place] [employer] law, this organization might not be sharing sensitive test results. * Chlamydia and Gonorrhea, Amplified (07/04/2024 8:37 AM EDT) C trach MARCELLE Negative Negative [facility] N gonorrhoeae MARCELLE Negative Negative [facility] Urine (Urine) 07/04/2024 8:3 7 AM EDT 07/04/2024 Comment:URINE Narrative [facility] - 07/05/2024 9:06 PM EDT Performed at: 01 - [facility], [address], [place], [place] [id number] Research Center Director: Joe Hinojosa MD, Phone: [phone] Keiry Melissa NP LAB MICROBIOLOGY - GENERAL O RDERABLES Final Result [facility] [address] [place] [address] from Last 3 Months or Most Recently Relevant to Health Maintenance Insurance [facility] HMO
== END ==
LOC: HO.CARD 13:03
PROVIDERS: PCP Physician Assistant Medical; Visit Provider Physician Assistant Medical
DX: R00.0 Tachycardia, unspecified (principal)
CPT/HCPCS: 93225

== ENCOUNTER → 2025-03-18 13:07 | Outpatient (BNV) | payer BC, SELFPAY | PROVIDERS: PCP Physician Assistant Medical; Visit Provider Internal Medicine | DX: I49.3 Ventricular premature depolarization (principal) | CPT/HCPCS: 93227 ==

== ENCOUNTER → 2025-04-05 14:46 | Outpatient (REF) | payer BC, SELFPAY ==
--- NOTE | ~2025-04-05 | US_ITS ---
CLINICAL HISTORY: M79.89 - Other specified soft tissue disorders US Thyroid Comparison: None provided Findings: The thyroid parenchyma is normal echotexture. Right thyroid 5.6 x 1.4 x 1.6 cm. Left thyroid 4.8 x 1.4 x 1.6 cm. Thyroid isthmus 3 mm. There is a 1.3 cm TR 2 nodule within the inferior right lobe. This is not suspicious and does not require follow-up. There is no suspicious thyroid nodule. There are multiple lymph nodes within the soft tissues of the neck. Two left-sided submandibular lymph nodes were documented measuring 1.2 x 0.7 x 1.5 cm and 1.1 x 0.5 x 1.1 cm in size. There is a solitary level 4 lymph node within the left side of the neck measuring 0.9 x 0.7 x 1.0 cm. There are 2 left-sided level 3 lymph nodes measuring 1.6 x 0.5 x 1.0 cm and 1.6 x 0.5 x 1.2 cm in size . Lymph nodes are normal morphology. Impression: 1. There are no suspicious thyroid nodules. 2. There are multiple small lymph nodes within the soft tissues of the neck, most likely inflammatory. [employer] [place] [employer] TI-RADS Categories TR1 and TR2 nodules do not have follow-up recommendations TR3 (FNA >= 2.5cm, F/U >= 1.5cm at 1, 3, and 5 yrs) TR4 (FNA >= 1.5cm, F/U >= 1cm at 1, 2, 3, and 5 yrs) TR5 (FNA >= 1cm, F/U >= 0.5cm annually for up to 5 yrs) This document has been electronically signed by: Mary aDo MD on 04/05/2025 19:31:04
--- NOTE | 2025-04-05 14:48 | CA_ITS ---
Transthoracic Echocardiogram Patient (Last, First, Middle): Jessica Paige, Gender: Female Date of : 2005 Age: 19 Procedure Date: 04/05/2025 Procedure Type: Transthoracic Echocardiogram Location: OP Height: 162.56 cm Weight: 58.97 kg BSA: 1.63 m2 Heart Rate: 87 bpm BP: 115 / 65 mmHg Senior Restaurant Manager: DANK Referring MD: Dulce JOSHUA Symptoms: R00.0 - Tachycardia, unspecified Study Quality: Adequate ECG Rhythm: Sinus Conclusions: - Normal left ventricular size, thickness, systolic function, and wall motion. The visually estimated ejection fraction is between 55-60%. Diastolic function is normal for age. - Normal right ventricular cavity size and systolic function. Findings Left Ventricle Normal left ventricular size, thickness, systolic function, and wall motion. The visually estimated ejection fraction is between 55-60%. Diastolic function is normal for age. Right Ventricle Normal right ventricular cavity size and systolic function. Atria The left atrium is normal in size. The right atrium is normal in size. Aortic Valve Normal aortic valve structure and function. There is no aortic valve stenosis. There is trace (trivial) aortic valve regurgitation. Mitral Valve The mitral valve appears normal. There is trace mitral valve regurgitation. There is no mitral valve stenosis. Pulmonic Valve The pulmonic valve is normal. There is trace pulmonic valve regurgitation. Tricuspid Valve Normal tricuspid valve structure. There is trace tricuspid valve regurgitation. Great Vessels All visible segments of the aorta are normal in size. The visualized portions of the pulmonary artery and branches are normal. Venous The inferior vena cava is normal in size and collapses greater than 50% with inspiration. Pericardium/Pleural There is no evidence of pericardial effusion. Prior Study Comparison No prior study available for comparison. Measurements 2D Linear Measurements IVSd: 0.72 0.6-0.9/0.6-1.0 cm LVIDd: 4.69 3.9-5.3/4.2-5.9 cm LVIDd Index: 2.88 2.4-3.2/2.2-3.1 cm/m2 LVIDs: 2.89 2.0-3.6 cm LVPWd: 0.69 0.7-1.1 cm LA Diam: 3.10 2.7-3.8/3.0-4.0 cm LAIDs Index: 1.90 1.5-2.3 cm/m2 LV Mass: 128.66 67-162/88-224 g LV Mass Index: 78.93 43-95/49-115 g/m2 LVOT Diam: 1.90 3.0+(-)1.3 cm 2D Systolic Function EF 4C: 62.40 >55% EF 2C: 59.50 >55% EF BiP: 60.50 >55% Mitral Valve MV Pk E: 0.86 MV PK A: 0.60 MV Decel Time: 141.00 E/A: 1.40 E'Lateral: 15.00 E'Medial: 11.40 E/E' Med: 7.50 E/E' Lat: 5.70 PHT: 41.00 MVA PHT: 5.37 Decel Fallon: 6.07 Aortic Valve AoV Pk Florin: 1.41 AoV Mn Florin: 0.97 AoV VTI: 0.25 AoV Pk Grad: 8.00 Aov Mn Grad: 4.00 VISH Cont.VTI: 2.22 AI Pk Florin: 3.76 AI Fallon: 1.04 LVOT LVOT Pk Florin: 1.21 LVOT Mn Florin: 0.80 LVOT VTI: 0.20 LVOT Pk Grad: 6.00 LVOT Mn Grad: 3.00 LVOT Diam: 1.90 LVOT Area: 2.84 Diastolic Function MV Pk E: 0.86 MV Pk A: 0.60 E/A: 1.40 E'Medial: 11.40 E/E' Med: 7.50 E' Laterial: 15.00 E/E' Lat: 5.70 Right Ventricle TAPSE (mm): 24.30 TVS' Florin: 12.90 Tricuspid Valve TR Pk Florin: 1.85 TR Pk Grad: 14.00 RA Press: 3.00 RVSP: 17.00 Great Vessels Aorta Sinus of Valsalva: 2.90 2.0-3.5 cm Ao Asc: 2.80 2.1-3.4 cm Ao Arch: 1.90 Pulmonary Valve PV Pk Florin: 1.17 Peak PV Grad: 5.00 Updated in Other Vendor System with Status of Final Gaetano Bowen MD electronically signed on 04/07/2025 3:20:57 PM with status of Final
--- OUTSIDE RECORDS SUMMARY | 2025-04-05 14:48 | XMS_ITS | Clinical Summary ---
Author Organization [facility] Address [address] [place] [address] Phone Care Team Providers Care President Financial Institution Name Role Phone Rodolfo Medrano MD Primary Care Provider [phone]- [phone] Allergies No known active allergies Medications ISIBLOOM 0.15-0.03 mg per tablet Take 1 tablet by mouth daily. 09/04/2021 Active hydrOXYzine (ATARAX) 25 MG tablet Take 25 mg by mouth 3 (three) times a day as needed. 10/31/2020 Active fluvoxaMINE (LUVOX) 100 MG tablet Take 1 tablet (100 mg total) by mouth nightly at bedtime. 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 Not on alisa e 01/07/2023 Are you concerned about learning? Not on file 01/07/2023 No 01/07/2023 No 01/07/2023 Digital Access Answer Date Recorded No 02/02/2023 No 02/02/2023 Reliable internet access at home? Not on file 02/02/2023 Device with a working camera? Not on file Comments Unknown Sex and Gender Information Value Date Recorded Sex Assigned at Female 10/06/2021 6:02 AM EST Legal Sex Female 12:07 PM EDT Gender Identity Female 10/06/2021 6:02 AM EST Sexual Orientation Straight 10/06/2021 6: 02 AM EST Last Filed Vital Signs Vital Sign Reading Time Taken Comments Blood Pressure 122/77 03/02/2022 2:13 PM EDT Pulse 94 03/02/2022 2:13 PM EDT Temperature 36.7 C (98.1 F) 03/02/2022 2:13 PM EDT Respiratory Rate 18 12/26/2020 4:47 PM EDT Oxygen Saturation 97% 03/02/2022 2:13 PM EDT Inhaled Oxygen Concentration - - Weight 61.6 kg (135 lb 14.4 oz) 03/02/2022 2:13 PM EDT Height 165.1 cm (5' 5 ) 03/02/2022 2:13 PM EDT Body Mass Index 22.61 03/02/2022 2:13 PM EDT Plan of Treatment Upcoming Encounters Date Type Department Care Team ([facility] st Contact Info) Description 06/21/2025 9:00 AM EDT Office Visit [facility] Epilepsy Service [address] [place] [address], 8th Floor, [address] [place] [address] Eufemia Caputo MD,MPH,PhD [address] [place] [address] [email or web address] Health Maintenance Due Date Last Done Comments DEPRESSION SCREENING 2015 SMOKING Hx and SMOKELESS TOBACCO SCREENING 2016 CHLAMYDIA SCREENING 2019 MENINGOCOCCAL VACCINES (B) (1 of 2 - Standard) 2019 ADOLESCENT UNIVERSAL LIPID SCREENING 2020 HEPATITIS C SCREENING 2021 HIV ONE-TIME SCREENING (18-65 YEARS) 2021 COVID-19 VACCINE ( season) 2024 PAP SMEAR 2024 Adult Td,Tdap Booster 04/15/2033 04/15/2023, 015 COMBINED DTaP,Tdap,Td (8 - Td or Tdap) 04/15/2033 04/15/2023, 03/18/2015, 03/06/2009, Additional history exists HIB VACCINES Completed 01/05/2005, 03/13, 01/28/2004, Additional history exists MMR VACCINES Completed 03/05/2008, 09/29/2004 HPV VACCINES Completed 03/19/2016, 0 04/2015, 03/18/2015 HEPATITIS A VACCINES Completed 03/30/2018, 03/28/20 17 MENINGOCOCCAL VACCINES (ACWY) Completed 04/09/2020, 03/18/2015 PNEUMOCOCCAL VACCINES (0-49 years) Aged Out No longer eligible based on patient's age to complete this topic Medical Devices Not on file Insurance [facility] [place] [address] [place] [address] HMO POS HMO POS HMO [place] [address] [place] [address] [place] [address] [place] [address] [place] [address]O POS O POS [place] [address] [place] [address] HMO POS HMO POS O POS HMO [place] [address] [place] [address] HMO POS [facility] Care Teams President Financial Institution Relationship Specialty Start Date End Date Rodolfo Medrano MD [address] [place] [address] PCP - General Pediatrics 12/04/20 Additional Source Comments The information contained in this document represents components of the legal health record. It is not the complete legal health record.[facility]
--- OUTSIDE RECORDS SUMMARY | 2025-04-05 14:48 | XMS_ITS | Clinical Summary ---
Author Organization [facility] Address [address] [place] [address] Care Team Providers Care Hospice Superintendent Name Role Phone Unavailable Primary Care Provider Unavailabl e Allergies No known active allergies Medications Desogestrel-Ethi nyl Estradiol (ISIBLOOM PO) Take by mouth. Active Ferrous Sulfate (IRON PO) Take by mouth. Active levocetirizine (XYZAL) 5 MG tablet Take 5 mg by mouth every evening. Active ondansetron (ZOFRAN) 4 MG tablet Take 4 mg by mouth as needed for nausea or vomiting. Active hydrOXYzine HCl (ATARAX) 25 MG tablet Take 25 mg by mouth as needed. Active LORAZEPAM PO Take by mouth. Active Encounters Date Type Department Care Team Description 03/28/2025 Scanned Document [facility], [address], [place] [phone] Unknown 03/27/2025 Scanned Document [facility], [address], [place] [phone] Unknown 03/27/2025 Scanned Document [facility], [address], [address] [phone] Unknown from Last 3 Months Family History Medical History Relation Name Comments Arthritis Maternal Grandmother Arthritis Paternal Grandmother Psoriatic Arthritis Paternal Grandmother Relation Name Status Comments Father Alive Maternal Grandmother Mother Alive Paternal Grandmother Social History Tobacco Use Types Packs/Day Years Used Date Smoking Tobacco: Never Tobacco Cessation:Counseling Given: Not Answered Alcohol Use Standard Drinks/Week Comments Never 0 (1 standard drink = 0.6 oz pur e alcohol) Comments Unknown Sex and Gender Information Value Date Recorded Sex Assigned at Female 03/27/2025 12:17 PM EDT Legal Sex Female 12:15 PM EDT Gender Identity Female 03/27/2025 12:17 PM EDT Sexual Orientation Choose not to disclose 2024 12:17 PM EDT Plan of Treatment Upcoming Encounters Date Type Department Care Team (Late st Contact Info) Description 05/14/2025 9:00 AM EDT [facility] Visit [facility] [address] [facility] [facility], [address] [place] [phone] Gertrude Dos Santos MD [address] [facility] [address] [place] [address] Health Maintenance Due Date Last Done Comments Hepatitis C Virus Screening 2003 HIV Screening 2016 HPV Vaccines (1 - 3-dose series) 2018 DTaP/Tdap/Td Vaccines (1 - Tdap) 2022 Hepatitis B Vaccines (1 of 3 - 19+ 3-dose series) 2022 COVID-19 Vaccine ( - 2023-2 5 season) 2024 Pap Smear (Ages 21-65) 2024 Influenza Vaccine 04/12/2025 Pneumococcal Vaccine: Pediat cherelle (0-5 Years) and At-Risk Patients (6 to 49 Years) Aged Out No longer eligible b ased on patient's age to complete this topic
--- OUTSIDE RECORDS SUMMARY | 2025-04-05 14:48 | XMS_ITS | Clinical Summary ---
Author Organization [facility] Address [address] [place] [address] Phone Care Team Providers Care Funeral Greeter Name Role Phone Unavailable Primary Care Provider [...] movements in the setting of increased anxiety. [facility] ER normal head and neck imaging. [...] to have seizure like activity. 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 Normal brain MRI and normal encephalitis panel. 06/02-08/[place] [facility] [place] Vallejo-unlikely PANDAs, taper off prozac not helpful and start fluvoxamine. Start guanfacine. Stop all abx. Working with OT. Likely dx is functional neurological disorder 09/2021: [facility] neurology Dr. Dennis. Working dx [...] Plan (02/03/2022 2:14 PM EDT): Followed by [facility] tic and movement clinic and neurology; [...] 11/02-06/02: prozac up to 40mg. 08/02: [place] [facility] [place] Val[place]jo taper off prozac and start Fluvoxamine, dosing guidelines per MCPAP. 12/01: 150mg fluvoxamine. Has therapist and may be in with psychiatrist soon. 01/01: per Dr. Dennis [facility] [place], thinks increase in fluvoxamine caused [...] will recheck end of summer at next [facility]. Babesiasis 04/03/2021 Painful menstruation 03/03/2021 Overview (12/11/2021): 04/01: abd ultrasound recommended by [facility], L hemorrhagic ovarian cyst 05/02: repeat U/S, no suspicious hemorrhagic ovarian cyst seen. 10/03: start OCP Apri. 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 Periods [...] Plan (04/08/2021 3:01 PM EDT): Followed by [facility] neurology, cardiology, and integrative medicine-working diagnosis of PANDAS. Will have apt at [facility] with tic specialist. Brain MRI normal, [...] week and mom will reach out to [facility] to plan next follow up. Assessment & Plan (03/12/2021 1:03 PM EDT): Motor and vocal tics have continued to progress these last 4-5 months, with maybe a little lessening since school has let out this past month. Most recently evaluated at [facility] neurology on 03/03/21 and underwent a brain [...] undergone significant testing through integrative medicine in [place] and being treated for lyme and allergies. [...] She has a [facility] and a follow up [facility]CC with md end of this month. Assessment & Plan [...] Team Description 01/24/2025 [facility]phone [facility] [address] [address] Tamika Esparza NP Release of Records from [...] complete this topic Procedures * Due to [place] [employer] law, this organization might not be sharing sensitive test results. Procedure Name Priority Date/Time Associated Diagnosis Comments CHLAMYDIA AND GONORRHEA, AMPLIFIED Routine 07/04/2024 8:37 AM EDT Well adult exam from Last 3 Months or Most Recently Relevant to Health Maintenance Results * Due to [place] [employer] law, this organization might not be sharing sensitive test results. * Chlamydia and Gonorrhea, Amplified (07/04/2024 8:37 AM EDT) C trach MARCELLE Negative Negative [facility] N gonorrhoeae MARCELLE Negative Negative [facility] Urine (Urine) 07/04/2024 8:3 7 AM EDT 07/04/2024 Comment:URINE Narrative [facility] - 07/05/2024 9:06 PM EDT Performed at: 01 - [facility], [address], [place], [place] [id number] Ink Maker: Joe Hinojosa MD, Phone: [phone] Keiry Melissa NP LAB MICROBIOLOGY - GENERAL O RDERABLES Final Result [facility] [address] [place] [address] from Last 3 Months or Most Recently Relevant to Health Maintenance Insurance [facility] HMO [facility] HMO [facility] HMO
== END ==
LOC: HO.CARD 14:46
PROVIDERS: PCP Physician Assistant Medical; Visit Provider Physician Assistant Medical
DX: E01.0 Iodine-deficiency related diffuse (endemic) goiter (principal); M79.89 Other specified soft tissue disorders; R00.0 Tachycardia, unspecified; R07.9 Chest pain, unspecified
CPT/HCPCS: 76536; 93306

== ENCOUNTER → 2025-04-05 14:48 | Outpatient (BNV) | payer BC, SELFPAY | PROVIDERS: PCP Physician Assistant Medical; Visit Provider Internal Medicine Cardiovascular Disease | DX: I35.1 Nonrheumatic aortic (valve) insufficiency (principal) | CPT/HCPCS: 93306 ==

== ENCOUNTER → 2025-04-05 15:58 | Outpatient (BNV) | payer BC, SELFPAY | PROVIDERS: PCP Physician Assistant Medical; Visit Provider Radiology Diagnostic Radiology | DX: R59.0 Localized enlarged lymph nodes (principal) | CPT/HCPCS: 76536 ==

== ENCOUNTER 2025-04-11 15:36 | Outpatient (AMB) | payer BC, SELFPAY ==
--- OUTSIDE RECORDS SUMMARY | 2025-04-11 15:39 | XMS_ITS | Clinical Summary ---
Author Organization [facility] Address [address] [place] [address] Phone Care Team Providers Care Charging Manipulator Name Role Phone Rodolfo Medrano MD Primary Care Provider +1- [phone] Allergies No known active allergies Medications ISIBLOOM [...] Upcoming Encounters Date Type Department Care Team ([facility] st Contact Info) Description 06/21/2025 9:00 AM EDT Office [place] [facility] [place] [address] [place] [address], 8th Floor, [address] [place] [address] Eufemia Caputo MD,MPH,PhD [address] [place] [address] [email or web address] Health Maintenance Due Date Last Done Comments [...] Devices Not on file [facility] [place] [address] [address] [place] [address] HMO POS HMO POS HMO [place] [address] [place] [address] [place] [place] [address] [place] [address] [place], [place] [address]O POS O POS [place] [address] [place] [address] HMO POS HMO POS O POS HMO [place] [address] [place] [address] HMO [facility] Care Teams Charging Manipulator Relationship Specialty Start Date End Date Rodolfo Medrano MD [address] [place] [address] PCP - General Pediatrics 12/04/20 Additional Source Comments The information contained in this document represents components of the legal health record. It is not the complete legal health record.[facility]
--- OUTSIDE RECORDS SUMMARY | 2025-04-11 15:39 | XMS_ITS | Clinical Summary ---
Author Organization [facility] Address [address] [place] [address] Care Team Providers Care Laborer Egg Producing Farm Name Role Phone Unavailable Primary Care Provider [...] Team Description 03/28/2025 Scanned Document [facility], [address], [place] [phone] Unknown 03/27/2025 Scanned Document [facility], [address], [place] [phone] Unknown 03/27/2025 Scanned Document [facility], [address], [address] [phone] Unknown from Last 3 Months [...] 9:00 AM EDT Office Visit [facility] [address] [facility] [place] [phone] Gertrude Dos Santos MD [address] [facility] [address] [place] [address] Health Maintenance Due Date Last Done Comments [...]
--- OUTSIDE RECORDS SUMMARY | 2025-04-11 15:39 | XMS_ITS | Clinical Summary ---
Author Organization [facility] Address [address] [place] [address] Phone Care Team Providers Care Doping Supervisor Name Role Phone Unavailable Primary Care Provider [...] movements in the setting of increased anxiety. [facility] ER normal head and neck imaging. [...] to have seizure like activity. 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 Normal brain MRI and normal encephalitis panel. 06/02-08/02: [facility] [place]. Vallejo-unlikely PANDAs, taper off prozac not helpful and start fluvoxamine. Start guanfacine. Stop all abx. Working with OT. Likely dx is functional neurological disorder 09/2021: [facility] neurology Dr. Dennis. Working dx likely functional [...] Plan (02/03/2022 2:14 PM EDT): Followed by [facility] tic and movement clinic and neurology; [...] 11/02-06/02: prozac up to 40mg. 08/02: per [facility] [place] Vallejo taper off prozac and start Fluvoxamine, dosing guidelines per MCPAP. 12/01: 150mg fluvoxamine. Has therapist and may be in with psychiatrist soon. 01/01: per Dr. Dennis [facility] neuro, thinks increase in fluvoxamine caused increased [...] will recheck end of summer at next [facility]. Babesiasis 04/03/2021 Painful menstruation 03/03/2021 Overview (12/11/2021): 04/01: abd ultrasound recommended by [facility], L hemorrhagic ovarian cyst 05/02: repeat U/S, no suspicious hemorrhagic ovarian cyst seen. 10/03: start OCP Apri. 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 Periods [...] Plan (04/08/2021 3:01 PM EDT): Followed by [facility] neurology, cardiology, and integrative medicine-working diagnosis of PANDAS. Will have apt at [facility] with tic specialist. Brain MRI normal, [...] week and mom will reach out to [facility] to plan next follow up. Assessment & Plan (03/12/2021 1:03 PM EDT): Motor and vocal tics have continued to progress these last 4-5 months, with maybe a little lessening since school has let out this past month. Most recently evaluated at [facility] neurology on 03/03/21 and underwent a brain [...] undergone significant testing through integrative medicine in [place] and being treated for lyme and allergies. [...] She has a follow up apt [facility] week and a follow up WCC with ri end of this month. Assessment & Plan [...] Team Description 01/24/2025 [facility]phone [facility] [address] [address] Tamika Esparza NP Release of Records from [...] complete this topic Procedures * Due to [place] [employer] law, this organization might not be sharing sensitive test results. Procedure Name Priority Date/Time Associated Diagnosis Comments CHLAMYDIA AND GONORRHEA, AMPLIFIED Routine 07/04/2024 8:37 AM EDT Well adult exam from Last 3 Months or Most Recently Relevant to Health Maintenance Results * Due to [place] [employer] law, this organization might not be sharing sensitive test results. * Chlamydia and Gonorrhea, Amplified (07/04/2024 8:37 AM EDT) C trach MARCELLE Negative Negative [facility] N gonorrhoeae MARCELLE Negative Negative [facility] Urine (Urine) 07/04/2024 8:3 7 AM EDT 07/04/2024 Comment:URINE Narrative [facility] - 07/05/2024 9:06 PM EDT Performed at: 01 - [facility], [address], [place], [place] [id number] Power Line Installer: Joe Hinojosa MD, Phone: [phone] Keiry Melissa NP LAB MICROBIOLOGY - GENERAL O RDERABLES Final Result [facility] [address] [place] [address] from Last 3 Months or Most Recently Relevant to Health Maintenance Insurance [facility]
--- NOTE | 2025-04-11 15:41 | A.OFFPC_ITS ---
Vital Signs 04/11/25 15:44 Height 5 ft 4 in Weight 133 lb BMI 22.8 BP 102/58 L Blood Pressure Location Lt brachial Position Sitting Pulse 80 Pulse Source Pulse Oximeter Temp 98 F Temp Source Temporal Artery Scan Pulse Oximetry (%) 99 Oxygen Delivery Method Room Air Intake Visit Reasons: 30 minute follow up Intake Note: Jessica presents in the office for a follow up to anxiety and labs. Allergies jin (cherries) Allergy (Verified 04/11/25 15:43) Swelling Tobacco use date assessed: 04/11/25 Dental Screening Dental Screen Date: 04/11/25 Did you have a dental visit in the last 12 months?: Yes Did you have a dental problem in the last 6 months where you did not have access to dental care?: No Was dental information given to patient?: Patient has dentist HPI HPI Comments History of Present Illness Details This is a 19-year-old female with a past medical history of a functional neurologic disorder, anxiety disorder and seizures presenting for follow up. Documented previously: I reviewed notes from Pediatrics. In October of 2020 she had a sudden onset of abnormal head and neck movements in the setting of increased anxiety. She was initially evaluated at the emergency department at [facility] with normal head and neck imaging. 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 She was treated with amoxicillin without resolution. Tics worsened including head banging and behavior changes and problems with speech and hand coordination. She started Prozac and was followed by integrative medicine. 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 In February she began to have seizure-like activity and was referred to Neurology. Differential included autoimmune encephalitis. She had a normal brain MR high and normal as encephalitis panel. She was seen at [facility] fall 2020. PANDAS thought to be unlikely. She was tapered off Prozac and put on fluvoxamine. She started guanfacine and stopped all antibiotics. She began working with occupational therapy. Working diagnosis of functional neurologic disorder. Sought multidisciplinary approach including Psychiatry, PT and OT. Also treated with the Izabella in the past. Attacks worsened by anxiety and stress but not directly caused by anxiety, instead maladaptive responses to major stressors. Since that time she has continued to have seizures once or twice a week. She has new concerns today about her heart rate. For the past couple of months she is experiencing increased heart rate. Heart rate has been as 170 and sustained this for at least 10 minutes. Reports heart rate increases when she stands up and she feels lightheaded and gets chest pain and mild shortness of breath. Patient reports device shows increase in heart rate when she stands by 30 beats per minute. When she was walking in here reports heart rate on her device was between 120-140. She was referred back to [facility] Neurology, and she has an appointment scheduled in June. She would like to go back on anxiety medication. Anxiety significantly impacts her, and she thinks it does contribute to her symptoms. During seizures he is conscious and able to remain seated, but her head falls down and she has mild convulsions of her extremities sometimes. 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 Continues to get paresthesias in her legs interm ittently. Reports prior treatment with Prozac was ineffective. She took fluvoxamine which was effective. It was discontinued in 2022. She does not feel depressed. Denies SI or HI. She is awaiting a callback from [facility]iology for her consult. Holter monitor and echocardiogram were negative aside from recording sinus tachycardia. She has a history of psoriasis. She saw [facility], and she was referred to Rheumatology for concerns about psoriatic arthritis. She has a consult in [place] in May. She had an ultrasound of the neck completed due to report of a 1 cm lump in the left submental region. Ultrasound showed lymph nodes with normal morphology. She has a thyroid nodule but does not meet criteria for biopsy or follow up ultrasound. ROS: Constitutional: No unexplained weight loss, fever, chills or night sweats. +fatigue Eyes: No vision changes, blurry vision, double vision Respiratory: Denies cough or wheezing Cardiovascular: See HPI. Gastrointestinal: No anorexia, nausea, vomiting or diarrhea. No abdominal pain or blood in stool. Neurologic: See HPI. Hematologic/Lymphatics: No bleeding or bruising. Endocrine: No cold or heat intolerance. No polyuria or polydipsia. Psychiatric: see HPI Physical exam: Constitutional: Alert, in no distress. Eyes: Pupils are equal, round and reactive to light. Extraocular muscles intact. Ear, Nose and Throat: Canals clear. TMs normal. Normal nasal mucosa. No nasal discharge. No oral lesions. Neck: Supple, Full range of motion. No palpable masses. Respiratory: Clear to auscultation. Cardiovascular: S1 S2 regular. No murmurs. Neurologic: No focal neurological deficits. Symmetric patellar reflexes. Moves all extremities spontaneously. Sensation intact bilaterally. Extremities: Warm and well perfused. No clubbing, cyanosis or edema. Intact peripheral pulses Psychiatric: Normal mood and affect [facility] Medical History (Updated 03/26/25 @ 13:22 by TRES Kirkpatrick) Lower extremity weakness Low ferritin Functional neurological symptom disorder with attacks or seizures Seizure disorder Anxiety Psoriasis Mass of soft tissue of neck Thyromegaly Chest pain Tachycardia Family History Maternal Grandfather Hypertension Hyperlipemia Paternal Grandfather Hypertension Brother Diabetes Social History (Updated 04/11/25 @ 15:44 by Lexi De Leon MA) Housing: House Alcohol intake: never Patient Tobacco Use Status: Never used Tobacco e-Cigarette/Vaping Use: Never Used Second Hand Smoke Exposure: No service: No Current occupational status: employed Current occupation: [employer] Work Current occupational exposures/hazards: No Cognitive needs: No Hearing needs: No Vision needs: No Questionnaire PHQ-9 Over the last 2 weeks, how often have you been bothered by any of the following problems? 1. Little interest or pleasure in doing things: not at all 2. Feeling down, depressed, or hopeless: several days 3. Trouble falling or staying asleep, or sleeping too much: several days 4. Feeling tired or having little energy: nearly every day 5. Poor appetite or overeating: nearly every day 6. Feeling bad about yourself - or that you are a failure or have let yourself or your family down: several days 7. Trouble concentrating on things, such as reading the newspaper or watching television: several days 8. Moving or speaking so slowly that other people could have noticed. Or the opposite - being so fidgety or restless that you have been moving around a lot more than usual: several days 9. Thoughts that you would be better off or of hurting yourself in some way: not at all Total score: 11 Source: Developed by Drs. Rodolfo Short, Niya Vallejo, Kevin Alves and colleagues, with an educational marisa from [employer]. Thrive Questionnaire Date Thrive assessed: 02/22/25 I am a: Patient What is your living situation today?: I have a steady place to live Within the past 12 months, did the food you bought not last and you didn't have the money to get more?: Never true Within the past 12 months, did you worry whether your food would run out before you got money to buy more?: Never true Do you have trouble paying for medicines?: No Do you have trouble getting transportation to medical appointments?: No Do you have trouble paying your heating and electricity bill?: No Do you have trouble taking care of your child, family member or friend?: No Do you have trouble with day-to-day activities such as bathing, preparing meals, shopping, managing finances, etc.?: No Are you currently unemployed and looking for a job?: No Are you interested in more education?: No Please select the resources that you would like help with: None Currently or been in a relationship where the following occur: No concerns reported THRIVE Score: 0 MARY JO-7 AMB Questionnaire MARY JO-7 Date MARY JO - 7 assessed: 02/28/25 Source: Developed by Drs. Rodolfo Short, Niya Vallejo, Kevin Alves and colleagues, with an educational marisa from [employer]. Physical exam (Primary Care) Vital Signs: Last Vital Signs Temp 98 F 04/11/25 15:44 Pulse 80 04/11/25 15:44 BP 102/58 L 04/11/25 15:44 Pulse Ox 99 04/11/25 15:44 Oxygen Delivery Method Room Air 04/11/25 15:44 BMI result Body Mass Index 22.8 Tobacco/Smoking Status: Tobacco use Status Tobacco use date assessed 04/11/25 04/11/25 15:47 Patient Tobacco Use Status Never used Tobacco 04/11/25 15:44 e-Cigarette/Vaping Use Never Used 04/11/25 15:44 PHQ-9: PHQ-9 Score PHQ-9: Total score 11 04/11/25 16:09 Thrive Assessment: Date of Thrive Assessment Date Thrive assessed 02/22/25 04/11/25 15:41 Currently or been in a relationship where the following occur: No concerns reported Coding Level of Care Code Est Pt Level 4 (23776) Complex EM visit Add On G2211 Diagnoses Tachycardia R00.0 Chest pain R07.9 Anxiety F41.9 Functional neurological symptom disorder with attacks or seizures F44.5 Assessment & Plan Assessment & Plan (1) Tachycardia: Code(s): R00.0 - Tachycardia, unspecified Category: Medical Plan: She is awaiting a call back from [facility] to schedule the consult. Holter monitor and echocardiogram were reassuring. Warning signs warranting ER evaluation reviewed with the patient. Avoid caffeine, stimulants and alcohol. Stay well hydrated throughout the day and eat regular meals. Reviewed the importance of stress reduction and sleep. Treat anxiety as noted below. (2) Chest pain: Code(s): R07.9 - Chest pain, unspecified Category: Medical Plan: Associated with tachycardia. EKG showed no ischemic changes or heart block. Echocardiogram negative. (3) Anxiety: Code(s): F41.9 - Anxiety disorder, unspecified Category: Medical Plan: TSH normal. She is seeing a therapist. She would like to restart anxiety medication. Discussed SSRI black box warning, potential side effects and administration. She will retry fluvoxamine 50 mg daily. (4) Functional neurological symptom disorder with attacks or seizures: Code(s): F44.5 - Conversion disorder with seizures or convulsions Category: Medical Plan: Patient underwent extensive workup and was ultimately given working diagnosis of functional neurologic disorder by [facility] Neurology. Treat anxiety as above. She is going to follow up with [facility] Neurology in June as planned due to continued seizure-like activity and paresthesias. Plan Follow up in 4 weeks. 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 Reports a exacerbation of symptoms when she is working with heavier dogs and she has to use more physical effort. Letter provided. Medications: New fluvoxamine 50 mg PO BEDTIME 90 tabs 0RF
[2025-04-11 15:44] VITALS: BP 102/58; PULSE 80; TEMP 36.6; O2SAT 99; BMI 22.8
== END 2025-04-11 16:21 | disposition home or self-care (01) ==
LOC: HO.HMCFM 15:36
PROVIDERS: PCP Physician Assistant Medical; Visit Provider Physician Assistant Medical
DX: R00.0 Tachycardia, unspecified (principal); R07.9 Chest pain, unspecified; F41.9 Anxiety disorder, unspecified; F44.5 Conversion disorder with seizures or convulsions

== ENCOUNTER 2025-05-16 11:03 | Outpatient (AMB) | payer BC, SELFPAY ==
--- OUTSIDE RECORDS SUMMARY | 2025-05-14 09:00 | XMS_ITS | Encounter Summary ---
Author Organization [facility] Address [address] [place] [id number] Care Team Providers Care Laborer Drying Department Name Role Phone Dulce Ross Primary Care Provider [phone] Reason for Visit * Rheumatology (Routine) - Closed Specialty Diagnoses / Procedures Referred By Contzi t Referred To Contact Diagnoses Joint pain Jillian Latham MD [address] [place] [address] Phone: tel: fax: Gertrude Dos Santos MD [address] [place] [address] Phone: tel: fax: Referral ID Status Reason Start Date Expiration Date Visits Re quested Visits Authorized [id number] Closed 03/27/2025 03/27/2026 1 1 Encounter Details Date Type Department Care Team (Late st Contact Info) Description 05/14/2025 9:00 AM EDT [facility] [address], [address] [place] [phone] Gertrude Dos Santos MD [address] [place] [address] [address] [place] [address] Arthralgia, unspecified joint (Primary Dx); Psoriasis ; Mid back pain Social History Tobacco Use Types Packs/Day Years [...] not to disclose 2024 12:17 PM EDT documented as of this encounter Progress Notes * Gertrude Dos Santos MD - 05/14/2025 9:29 AM EDT Images from the original note were not included. Assessment & Plan The patient is a 19-year-old very nice young lady with long history of psoriasis, history of goiterand anemia, who was referred by Dr. Jillian Latham for further evaluation for joint pain, for possible underlying autoimmune inflammatory CTD. Joint pain affecting shoulders, knees and ankles in the settings of long history of psoriasis-rule out psoriatic arthritis. She has no active synovitis. I reviewed the blood work done couple of months ago which showed normal CBC and CMP, normal vitaminD and TSH and normal iron studies. Check inflammatory markers and check x-rays of the ankles to evaluate for enthesopathy and x-rays of the knees. She has also 1 year history of thoracic spine pain. Check x-rays to evaluate for syndesmophytes. Check HLA-B27 which can be positive in 30% of patients with psoriatic arthritis. In addition to inflammatory markers I will check serology including RF and CCP and EDMOND to evaluate for underlying inflammatory arthritides. The patient has also a mild form of hypermobility which may account for joint pain. She also complains of postural tachycardia. She follows with cardiology. She had an echocardiogram. Recommend to discuss with the tank officer the concern for EDS with vascular involvement. Recommend physical therapy for muscle strengthening. Goiter. Her recent TSH couple of months ago was normal. Psoriasis. Active lesions scalp and armpits. Follows with dermatology. She was diagnosed when she was 8. Rule out psoriatic arthritis as above. Diagnoses and all orders for this visit: Arthralgia, unspecified joint - HLA - B27 Antigen - Erythrocyte Sedimentation Rate (ESR) - C-REACTIVE PROTEIN - Analyzer???,EDMOND,IFA With Reflex Titer/Pattern, Systemic Autoimmune Panel 1 - RHEUMATOID FACTOR - Cyclic Citrullinated Peptide IgG Ab - XR Knee 1 or 2 views-Bilateral; Future - XR Knee 1 or 2 views-Bilateral - XR Ankle 2 views-Bilateral; Future - XR Ankle 2 views-Bilateral Psoriasis - HLA - B27 Antigen - Erythrocyte Sedimentation Rate (ESR) - C-REACTIVE PROTEIN - Analyzer???,EDMOND,IFA With Reflex Titer/Pattern, Systemic Autoimmune Panel 1 - RHEUMATOID FACTOR - Cyclic Citrullinated Peptide IgG Ab Mid back pain - HLA - B27 Antigen - Erythrocyte Sedimentation Rate (ESR) - C-REACTIVE PROTEIN - Analyzer???,EDMOND,IFA With Reflex Titer/Pattern, Systemic Autoimmune Panel 1 - RHEUMATOID FACTOR - Cyclic Citrullinated Peptide IgG Ab - XR Thoracic spine 2 views; Future - XR Thoracic spine 2 views Subjective Subjective Patient ID: Jessica Paige is a 19 y.o. female. HPI The patient is a 19-year-old very nice young lady with long history of psoriasis, history of goiterand anemia, who was referred by Dr. Jillian Latham for further evaluation for joint pain, for possible underlying autoimmune inflammatory CTD. For the last several months she has been noticing joint pain affecting the knees, the shoulders andthe ankles. She rates the pain as a 2 on a 1-10 pain scale during daytime and goes up to 5 at night. There is no associated joint stiffness or swelling. The knees pop back when she steps. She can pop out the pinky MCP joint. She also complains of mid back pain which she thinks is due to her work. She is a occupational health specialist. She walks half a mile before she has to stop due to joint pains. In 2020 she was diagnosed with functional neurological disorder at [facility] General neurology department. She has motor tics and verbal tics and abnormal gait. She is seeing a tank officer (had only 1 visit so far), for nausea and tachycardia with standing up. She was advised to start regular exercises and has follow-up with him this month. She has canker sores almost every month. They last about a week. She does not take anything in particular. For her joint pain she takes sometimes naproxen or Advil. Her grandmother has psoriasis and psoriatic arthritis. The patient denies Raynaud's phenomenon. She has active psoriatic lesions of the scalp and in the armpits. She denies history of iritis or uveitis. No history of inflammatory bowel disorders. No diarrhea with blood in the stools. Review of Systems Review of Systems Constitutional: Negative. Negative for activity change, appetite change, fatigue, fever and unexpected weight change. HENT: Negative. Negative for congestion, dental problem, ear pain, mouth sores, postnasal drip, sinus pressure, sinus pain and sore throat. Eyes: Negative. Negative for photophobia, pain, redness and visual disturbance. Respiratory: Negative. Negative for cough, shortness of breath and wheezing. Cardiovascular: Negative. Negative for chest pain, palpitations and leg swelling. Gastrointestinal: Negative. Negative for abdominal distention, abdominal pain, blood in stool, constipation, diarrhea and nausea. Endocrine: Negative. Negative for cold intolerance and heat intolerance. Genitourinary: Negative. Negative for dysuria, flank pain, frequency and hematuria. Musculoskeletal: Positive for arthralgias and back pain. Negative for joint swelling and myalgias. Skin: Negative for rash and wound. Psoriasis of the scalp and armpits Allergic/Immunologic: Negative. Neurological: Negative. Negative for seizures, weakness, numbness and headaches. Hematological: Negative. Negative for adenopathy. Does not bruise/bleed easily. Psychiatric/Behavioral: Negative. Negative for behavioral problems and sleep disturbance. The patient is not nervous/anxious. Past Medical History: Past Medical History: Diagnosis Date Anemia Goiter Psoriasis History reviewed. No pertinent surgical history. Social History Socioeconomic History Marital status: Single Spouse name: Not on file Number of children: Not on file Years of education: Not on file Highest education level: Not on file Occupational History Not on file Tobacco Use Smoking status: Never Smokeless tobacco: Not on file Substance and Sexual Activity Alcohol use: Never Drug use: Never Sexual activity: Not on file Other Topics Concern Not on file Social History Narrative Not on file Social Drivers of Health Financial Resource Strain: Not on file Food Insecurity: Not on file Transportation Needs: Not on file Physical Activity: Not on file Stress: Not on file Social Connections: Not on file Housing Stability: Not on file Family History Problem Relation Age of Onset Arthritis Maternal Grandmother Psoriatic Arthritis Paternal Grandmother Arthritis Paternal Grandmother Objective Objective There were no vitals filed for this visit. Physical Exam Constitutional: Appearance: She is well-developed. HENT: Head: Normocephalic and atraumatic. Eyes: Conjunctiva/sclera: Conjunctivae normal. Cardiovascular: Rate and Rhythm: Normal rate and regular rhythm. Heart sounds: Normal heart sounds. Pulmonary: Effort: Pulmonary effort is normal. No respiratory distress. Breath sounds: Normal breath sounds. No wheezing or rales. Abdominal: General: There is no distension. Palpations: Abdomen is soft. There is no mass. Tenderness: There is no abdominal tenderness. There is no guarding. Musculoskeletal: General: Normal range of motion. Cervical back: Normal range of motion and neck supple. Comments: BT hands DIPs, PIPs, MCPs, wrists, elbows, shoulders, knees, ankles, MTPs with no tenderness, no synovial swelling and good ROM. Hips with no pain to internal-external rotation. No SI joints tenderness. Signs of hypermobility with increased range of motion in the wrists and MCPs as well as internal rotation of the shoulders and hyperextension of the knees. Lymphadenopathy: Cervical: No cervical adenopathy. Skin: General: Skin is warm and dry. Findings: Lesion (Psoriasis of the scalp and armpits) present. No rash. Neurological: Mental Status: She is alert and oriented to person, place, and time. Motor: No abnormal muscle tone. Coordination: Coordination normal. Deep Tendon Reflexes: Reflexes normal. documented in this encounter Plan of Treatment Upcoming Encounters Date Type Department Care Team (Late st Contact Info) Description 07/10/2025 8:20 AM EDT [facility] [address] [place] [phone] Gertrude Dos Santos MD [address] [place] [address] [address] [place] [address] Scheduled Orders Name Type Priority Associated Diagnoses Orde r Schedule HLA - B27 Antigen Lab Routine Arthralgia, unspecified joint Psoriasis Mid back pain Ordered: 05/14/2025 Erythrocyte Sedimentation Rate (ESR) Lab Routine Arthralgia, unspecified joint Psoriasis Mid back pain Ordered: 05/14/2025 C-REACTIVE PROTEIN Lab Routine Arthralgia, unspecified joint Psoriasis Mid back pain Ordered: 05/14/2025 Analyzer , EDMOND,IFA With Reflex Titer/Pattern, Systemic Autoimmune Panel 1 Lab Routine Arthralgia, unspecified joint Psoriasis Mid back pain Ordered: 05/14/2025 RHEUMATOID FACTOR Lab Routine Arthralgia, unspecified joint Psoriasis Mid back pain Ordered: 05/14/2025 Cyclic Citrullinated Peptide IgG Ab Lab Routine Arthralgia, unspecified joint Psoriasis Mid back pain Ordered: 05/14/2025 XR Thoracic spine 2 views Imaging Routine Mid back pain Expected: 05/14/2025, Expires: 05/14/2026 XR Knee 1 or 2 views-Bilateral Imaging Routine Arthralgia, unspecified joint Expected: 05/14/2025, Expires: 05/14/2026 XR Ankle 2 views-Bilateral Imaging Routine Arthralgia, unspecified joint Expected: 05/14/2025, Expires: 05/14/2026 documented as of this encounter Visit Diagnoses Diagnosis Arthralgia, unspecified joint- Primary Psoriasis Other psoriasis Mid back pain documented in this encounter Care Teams Laborer Drying Department Relationship Specialty Start Date End Date Dulce Ross PA [address] [place] [id number] PCP - General General Medicine 05/14/25 documented as of this encounter
--- NOTE | 2025-05-16 11:10 | MHC.PC.OV ---
Vital Signs 05/16/25 11:16 Height 5 ft 4 in Weight 130 lb 5 oz BMI 22.4 BP 100/68 Blood Pressure Location Lt brachial Position Sitting Pulse 93 Pulse Source Pulse Oximeter Temp 98.4 F Temp Source Temporal Artery Scan Pulse Oximetry (%) 98 Oxygen Delivery Method Room Air Intake Visit Reasons: med check Intake Note: Jessica presents in the office today for medication check in. Allergies jin (cherries) Allergy (Verified 05/16/25 11:15) Swelling Tobacco use date assessed: 05/16/25 Dental Screening Dental Screen Date: 05/16/25 Did you have a dental visit in the last 12 months?: Yes Did you have a dental problem in the last 6 months where you did not have access to dental care?: No Was dental information given to patient?: Patient has dentist HPI HPI Comments History of Present Illness Details This is a 19-year-old female with a past medical history of a functional neurologic disorder, anxiety disorder and seizures presenting for follow up. Documented previously: I reviewed notes from Pediatrics. In October of 2020 she had a sudden onset of abnormal head and neck movements in the setting of increased anxiety. She was initially evaluated at the emergency department at [facility] with normal head and neck imaging. 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 She was treated with amoxicillin without resolution. Tics worsened including head banging and behavior changes and problems with speech and hand coordination. She started Prozac and was followed by integrative medicine. 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 In February she began to have seizure-like activity and was referred to Neurology. Differential included autoimmune encephalitis. She had a normal brain MR high and normal as encephalitis panel. She was seen at [facility]. PANDAS thought to be unlikely. She was tapered off Prozac and put on fluvoxamine. She started guanfacine and stopped all antibiotics. She began working with occupational therapy. Working diagnosis of functional neurologic disorder. Sought multidisciplinary approach including Psychiatry, PT and OT. Also treated with the Izabella in the past. Attacks worsened by anxiety and stress but not directly caused by anxiety, instead maladaptive responses to major stressors. Since that time she has continued to have seizures once or twice a week. She has new concerns today about her heart rate. For the past couple of months she is experiencing increased heart rate. Heart rate has been as 170 and sustained this for at least 10 minutes. Reports heart rate increases when she stands up and she feels lightheaded and gets chest pain and mild shortness of breath. Patient reports device shows increase in heart rate when she stands by 30 beats per minute. When she was walking in here reports heart rate on her device was between 120-140. She was referred back to [facility], and she has an appointment scheduled in June. She restarted fluvoxamine after our last visit. She is taking 50 mg at bedtime. She denies side effects. She is unsure if it is helping. She feels like anxiety is worse lately, but she does not necessarily feel like this is due to the medication. Anxiety significantly impacts her, and she thinks it does contribute to her symptoms. During seizures he is conscious and able to remain seated, but her head falls down and she has mild convulsions of her extremities sometimes. 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 Continues to get paresthesias in her legs intermittently. Reports prior treatment with Prozac was ineffective. She took fluvoxamine which was effective. It was discontinued in 2022. She does not feel depressed. Denies SI or HI. She saw [facility]iology for her consult. Holter monitor and echocardiogram were negative aside from recording sinus tachycardia. Patient has a follow up on 06/03/25. She started doing an exercise regimen. She has a history of psoriasis. She saw [facility], and she was referred to Rheumatology for concerns about psoriatic arthritis. She saw rheumatology [place] in May who brought up concerns about hypermobility. She ordered an xrays of the back, knees and ankles and additional lab results. A follow up as scheduled. She had an ultrasound of the neck completed due to report of a 1 cm lump in the left submental region. Ultrasound showed lymph nodes with normal morphology. She has a thyroid nodule but does not meet criteria for biopsy or follow up ultrasound. ROS: Constitutional: No unexplained weight loss, fever, chills or night sweats. +fatigue Eyes: No vision changes, blurry vision, double vision Respiratory: Denies cough or wheezing Cardiovascular: See HPI. Gastrointestinal: No anorexia, nausea, vomiting or diarrhea. No abdominal pain or blood in stool. Neurologic: See HPI. Hematologic/Lymphatics: No bleeding or bruising. Endocrine: No cold or heat intolerance. No polyuria or polydipsia. Psychiatric: see HPI Physical exam: Constitutional: Alert, in no distress. Eyes: Pupils are equal, round and reactive to light. Extraocular muscles intact. Ear, Nose and Throat: Canals clear. TMs normal. Normal nasal mucosa. No nasal discharge. No oral lesions. Neck: Supple, Full range of motion. No palpable masses. Respiratory: Clear to auscultation. Cardiovascular: S1 S2 regular. No murmurs. Neurologic: No focal neurological deficits Psychiatric: + psychomotor agitation (tapping feet) [facility] Medical History (Updated 03/26/25 @ 13:22 by TRES Kirkpatrick) Lower extremity weakness Low ferritin Functional neurological symptom disorder with attacks or seizures Seizure disorder Anxiety Psoriasis Mass of soft tissue of neck Thyromegaly Chest pain Tachycardia Family History Maternal Grandfather Hypertension Hyperlipemia Paternal Grandfather Hypertension Brother Diabetes Social History (Updated 05/16/25 @ 11:16 by Lexi De Leon MA) Housing: House Alcohol intake: never Patient Tobacco Use Status: Never used Tobacco e-Cigarette/Vaping Use: Never Used Second Hand Smoke Exposure: No service: No Current occupational status: employed Current occupation: [employer] Machine Operator Current occupational exposures/hazards: No Cognitive needs: No Hearing needs: No Vision needs: No Questionnaire Thrive Questionnaire Date Thrive assessed: 02/22/25 I am a: Patient What is your living situation today?: I have a steady place to live Within the past 12 months, did the food you bought not last and you didn't have the money to get more?: Never true Within the past 12 months, did you worry whether your food would run out before you got money to buy more?: Never true Do you have trouble paying for medicines?: No Do you have trouble getting transportation to medical appointments?: No Do you have trouble paying your heating and electricity bill?: No Do you have trouble taking care of your child, family member or friend?: No Do you have trouble with day-to-day activities such as bathing, preparing meals, shopping, managing finances, etc.?: No Are you currently unemployed and looking for a job?: No Are you interested in more education?: No Please select the resources that you would like help with: None Currently or been in a relationship where the following occur: No concerns reported THRIVE Score: 0 MARY JO-7 AMB Questionnaire MARY JO-7 Date MARY JO - 7 assessed: 02/28/25 Source: Developed by Drs. Rodolfo Short, Niya Vallejo, Kevin Alves and colleagues, with an educational marisa from [employer]. Physical exam (Primary Care) Vital Signs: Last Vital Signs Temp 98.4 F 05/16/25 11:16 Pulse 93 05/16/25 11:16 BP 100/68 05/16/25 11:16 Pulse Ox 98 05/16/25 11:16 Oxygen Delivery Method Room Air 05/16/25 11:16 BMI result Body Mass Index 22.4 Tobacco/Smoking Status: Tobacco use Status Tobacco use date assessed 05/16/25 05/16/25 11:19 Patient Tobacco Use Status Never used Tobacco 05/16/25 11:16 e-Cigarette/Vaping Use Never Used 05/16/25 11:16 Thrive Assessment: Date of Thrive Assessment Date Thrive assessed 02/22/25 05/16/25 11:11 Currently or been in a relationship where the following occur: No concerns reported Coding Level of Care Code Est Pt Level 4 (71692) Diagnoses Tachycardia R00.0 Chest pain R07.9 Anxiety F41.9 Functional neurological symptom disorder with attacks or seizures F44.5 Assessment & Plan Assessment & Plan (1) Tachycardia: Code(s): R00.0 - Tachycardia, unspecified Category: Medical Plan: Following with cardiology at [facility]. Holter monitor and echocardiogram were reassuring. Warning signs warranting ER evaluation reviewed with the patient. Avoid caffeine, stimulants and alcohol. Stay well hydrated throughout the day and eat regular meals. Reviewed the importance of stress reduction and sleep. Treat anxiety as noted below. (2) Chest pain: Code(s): R07.9 - Chest pain, unspecified Category: Medical Plan: Associated with tachycardia. EKG showed no ischemic changes or heart block. Echocardiogram negative. Following with Cardiology. (3) Anxiety: Code(s): F41.9 - Anxiety disorder, unspecified Category: Medical Plan: TSH normal. She is seeing a therapist. Increase fluvoxamine to 25 mg in the morning and 50 mg at bedtime. Monitor closely for worsening anxiety and contact the office if you experience side effects or difficulties on the medication. Discussed SSRI black box warning, potential side effects and administration. (4) Functional neurological symptom disorder with attacks or seizures: Code(s): F44.5 - Conversion disorder with seizures or convulsions Category: Medical Plan: Patient underwent extensive workup and was ultimately given working diagnosis of functional neurologic disorder by [facility]. Treat anxiety as above. She is going to follow up with [facility] in June as planned due to continued seizure-like activity and paresthesias. Plan Follow up in 4 weeks.
[2025-05-16 11:16] VITALS: BP 100/68; PULSE 93; TEMP 36.9; O2SAT 98; BMI 22.4
--- OUTSIDE RECORDS SUMMARY | 2025-05-16 12:41 | XMS_ITS ---
Author Name [facility] Organization Unknown Encounters Encounter Type Encounter Reason Primary Diagnosis Location Date Ambulatory Pain in unspecified joint Pain in unspecified joint [facility] 05/14/2025 Care Team Organization Name Specialty Phone Email Start Date End Da te [facility] 05/14/2025 [facility] Primary [facility] 05/14/2025 [facility] 03/27/2025
--- OUTSIDE RECORDS SUMMARY | 2025-05-16 12:41 | XMS_ITS | Encounter Summary ---
Author Organization [facility] Address [address] [place] [address] Care Team Providers Care Woodenware Assembler Name Role Phone Dulce Ross Primary Care Provider [phone] Encounter Details Date Type Department Care Team (Late st Contact Info) Description 03/27/2025 Scanned Document [facility], [place] [phone] Unknown Unknow Provider Address Social History Tobacco Use Types Packs/Day Years Used Date Smoking Tobacco: Never Assessed Comments Unknown Sex and Gender Information Value Date Recorded Sex Assigned at Female 03/27/2025 12:17 PM EDT Legal Sex Female 12:15 PM EDT Gender Identity Female 03/27/2025 12:17 PM EDT Sexual Orientation Choose not to disclose 2024 12:17 PM EDT documented as of this encounter Plan of Treatment Upcoming Encounters Date Type Department Care Team (Late st Contact Info) Description 07/10/2025 8:20 AM EDT Office Visit [facility], [address], [facility] [address] [place] [phone] Gertrude Dos Santos MD [address] [place] [address] documented as of this encounter Visit Diagnoses Not on filedocumented in this encounter Care Teams Woodenware Assembler Relationship Specialty Start Date End Date Dulce Ross PA [address] [place] [phone] PCP - General General Medicine 05/14/25 documented as of this encounter
--- OUTSIDE RECORDS SUMMARY | 2025-05-16 12:41 | XMS_ITS | Clinical Summary ---
Author Organization [facility] Address [address] [place] [address] Phone Care Team Providers Care Freight Delivery Driver Name Role Phone Unavailable Primary Care Provider [...] movements in the setting of increased anxiety. [facility] ER normal head and neck imaging. [...] to have seizure like activity. referral to [facility] neurology-ddx autoimmune encephalitis. Normal brain MRI and normal encephalitis panel. 06/02-08/02: [facility] [place]. Vallejo-unlikely PANDAs, taper off prozac not helpful and start fluvoxamine. Start guanfacine. Stop all abx. Working with OT. Likely dx is functional neurological disorder 09/2021: [facility] neurology Dr. Dennis. Working dx likely functional [...] Plan (02/03/2022 2:14 PM EDT): Followed by [facility] tic and movement clinic and neurology; [...] 11/02-06/02: prozac up to 40mg. 08/02: per [facility] [place]. Vallejo taper off prozac and start Fluvoxamine, dosing guidelines per MCPAP. 12/01: 150mg fluvoxamine. Has therapist and may be in with psychiatrist soon. 01/01: per Dr. Dennis [facility] neuro, thinks increase in fluvoxamine caused increased [...] will recheck end of summer at next [facility]. Babesiasis 04/03/2021 Painful menstruation 03/03/2021 Overview (12/11/2021): 04/01: abd ultrasound recommended by [facility], L hemorrhagic ovarian cyst 05/02: repeat U/S, no suspicious hemorrhagic ovarian cyst seen. 10/03: start OCP Apri. 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 Periods [...] Plan (04/08/2021 3:01 PM EDT): Followed by [facility] neurology, cardiology, and integrative medicine-working diagnosis of PANDAS. Will have apt at [facility] with tic specialist. Brain MRI normal, [...] week and mom will reach out to [facility] to plan next follow up. Assessment & Plan (03/12/2021 1:03 PM EDT): Motor and vocal tics have continued to progress these last 4-5 months, with maybe a little lessening since school has let out this past month. Most recently evaluated at [facility] neurology on 03/03/21 and underwent a brain [...] undergone significant testing through integrative medicine in [place] and being treated for lyme and allergies. [...] She [facility] and a follow up [facility] end of this month. Assessment & Plan [...] as questions arise or any new concerns. Immunizations Immunization Administration Dates Next Due DTaP [...] 2 - Standard) 2019 Influenza Vaccines (#1) 2025 08/16/2011 COVID-19 Vaccine ( - season) 2025 DTaP,Tdap,and Td Vaccines (8 - Td or [...] complete this topic Procedures * Due to [facility] law, this organization might not be sharing sensitive test results. Procedure Name Priority Date/Time Associated Diagnosis Comments CHLAMYDIA AND GONORRHEA, AMPLIFIED Routine 07/04/2024 8:37 AM EDT Well adult exam from Last 3 Months or Most Recently Relevant to Health Maintenance Results * Due to [place] [employer] law, this organization might not be sharing sensitive test results. * Chlamydia and Gonorrhea, Amplified (07/04/2024 8:37 AM EDT) C trach MARCELLE Negative Negative [facility] N gonorrhoeae MARCELLE Negative Negative [facility] Urine (Urine) 07/04/2024 8:3 7 AM EDT 07/04/2024 Comment:URINE Narrative [facility] - 07/05/2024 9:06 PM EDT Performed at: 01 - [facility] [address], [address], [place], [place] [id number] Chemical Blender: Joe Hinojosa MD, Phone: [phone] Keiry Melissa NP LAB MICROBIOLOGY - GENERAL O RDERABLES Final Result Performing Organization Address City/State/[facility] Co de Phone Number [facility] [address] [place] [address] from Last 3 Months or Most Recently Relevant to Health Maintenance Insurance [facility]
--- OUTSIDE RECORDS SUMMARY | 2025-05-16 12:41 | XMS_ITS | Clinical Summary ---
Author Organization [facility] Address [address] [place] [address] Care Team Providers Care World Renowned Chef And Restaurant Owner Name Role Phone Dulce Ross Primary Care Provider [phone] Allergies No known active allergies Medications Desogestrel-Ethi [...] Active LORAZEPAM PO Take by mouth. Active Active Problems No known active problems Encounters Date Type Department Care Team Description 05/14/2025 9:00 AM EDT [facility], [address], [address] [phone] Gertrude Dos Santos MD Arthralgia, unspecified joint (Primary Dx); Psoriasis ; Mid back pain 03/28/2025 Scanned Document [facility], [address] [phone] Unknown 03/27/2025 Scanned Document [facility], [address], [address] [phone] Unknown 03/27/2025 Scanned Document [facility], [address], [address] [phone] Unknown from Last 3 Months Family History [...] AM EDT [facility], [address] [place] [phone] Gertrude Dos Santos MD [address] [facility] [address] [place], [place] [phone] Health Maintenance Due Date Last Done Comments Hepatitis C Virus Screening 2003 HIV Screening 2016 HPV Vaccines (1 - 3-dose series) 2018 DTaP/Tdap/Td Vaccines (1 - Tdap) 2022 Hepatitis B Vaccines (1 of 3 - 19+ 3-dose series) 2022 Pap Smear (Ages 21-65) 2024 Influenza Vaccine 04/12/2025 08/16/2011 COVID-19 Vaccine (1 - 2023-2 5 season) 2025 Pneumococcal Vaccine: Pediat cherelle (0-5 Years) and At-Risk Patients (6 to 49 Years) Aged Out No longer eligible b ased on patient's age to complete this topic Insurance [facility] OF [facility] - O Care Teams World Renowned Chef And Restaurant Owner Relationship Specialty Start Date End Date Dulce Ross PA [address] [place] [phone] PCP - General General Medicine 05/14/25
--- OUTSIDE RECORDS SUMMARY | 2025-05-16 12:41 | XMS_ITS | Encounter Summary ---
Author Organization [facility] Address [address] [place] [address] [place] [address] Phone Care Team Providers Care Collector Of Internal Revenue Name Role Phone Rodolfo Medrano MD Primary Care Provider [phone] Reason for Visit * Reason Comments Medication Refill Encounter Details Date Type Department Care Team (Late st Contact Info) Description 02/25/2022 Refill [facility] [address] [facility] [address] [place] [address] Kamran Vallejo MD, PhD [facility] [address] [place] [address] [email or web address] Medication Refill Social History Tobacco Use Types Packs/Day Years Used Date Smoking Tobacco: Never Assessed Comments Unknown Sex and Gender Information Value Date Recorded Sex Assigned at Female 10/06/2021 6:02 AM EST Legal Sex Female 12:07 PM EDT Gender Identity Female 10/06/2021 6:02 AM EST Sexual Orientation Straight 10/06/2021 6: 02 AM EST documented as of this encounter Plan of Treatment Upcoming Encounters Date Type Department Care Team (Late st Contact Info) Description 06/21/2025 9:00 AM EDT Office Visit [facility] Ep[facility] Service [address] [facility], 8th Floor, [address] [place] [address] Eufemia Caputo MD,MPH,PhD [address] [place] [phone] [email or web address] documented as of this encounter Visit Diagnoses Not on filedocumented in this encounter Care Teams Collector Of Internal Revenue Relationship Specialty Start Date End Date Rodolfo Medrano MD [address] [place] [address] PCP - General Pediatrics 12/04/20 documented as of this encounter Additional Source Comments The information contained in this document represents components of the legal health record. It is not the complete legal health record.[facility]
--- OUTSIDE RECORDS SUMMARY | 2025-05-16 12:41 | XMS_ITS | Encounter Summary ---
Author Organization [facility] Address [address] [place] [address] Care Team Providers Care Beer Merchant Name Role Phone Dulce Ross Primary Care Provider [phone] Encounter Details Date Type Department Care Team (Late st Contact Info) Description 03/27/2025 Scanned Document [facility], [place] [phone] Unknown Unknow Provider Address Social History Tobacco [...] 8:20 AM EDT Office Visit [facility], [address], [facility] [address] [place] [phone] Gertrude Dos Santos MD [address] [place] [address] documented as of this encounter Visit Diagnoses Not on filedocumented in this encounter Care Teams Beer Merchant Relationship Specialty Start Date End Date Dulce Ross PA [address] [place] [id number] PCP - General General Medicine 05/14/25 documented as of this encounter
--- OUTSIDE RECORDS SUMMARY | 2025-05-16 12:41 | XMS_ITS | Encounter Summary ---
Author Organization [facility] Address [address] [place] [address] [place] [address] Phone Care Team Providers Care Filter Cloth Maker Name Role Phone Rodolfo Medrano MD Primary Care Provider [phone] Reason for Visit * Reason Comments Medication Refill Encounter Details Date Type Department Care Team (Late st Contact Info) Description 12/27/2021 Refill [facility] 1 [facility] [address] [place] [address] Kamran Vallejo MD, PhD [facility] [address] [place] [address] [email or web address] Medication Refill Social History Tobacco Use Types [...] Description 06/21/2025 9:00 AM EDT Office Visit [facility] [address] [facility], 8th Floor, [address] [place] [address] Eufemia Caputo MD,MPH,PhD [address] [place] [phone] [email or web address] documented as of this encounter Visit Diagnoses Not on filedocumented in this encounter Care Teams Filter Cloth Maker Relationship Specialty Start Date End Date Rodolfo Medrano MD [address] [place] [address] PCP - General Pediatrics 12/04/20 documented as of this encounter Additional Source Comments The information contained in this document represents components of the legal health record. It is not the complete legal health record.[facility]
--- OUTSIDE RECORDS SUMMARY | 2025-05-16 12:41 | XMS_ITS | Encounter Summary ---
Author Organization [facility] Address [address] [place] [address] Phone Care Team Providers Care Civil Clerk Name Role Phone Melyssa Major MD Primary Care Provider Encounter Details Date Type Department Care Team (Late st Contact Info) Description 01/29/2018 Conversion [facility]counter [facility] [address] [address] Kelsea Tao MD [address] [place] [address] Social History Tobacco Use Types Packs/Day Years Used Date Smoking Tobacco: Never Assessed Comments Unknown Sex and Gender Information Value Date Recorded Sex Assigned at Not on file Legal Sex Female 6:09 PM EDT Gender Identity Female 11/06/2020 6:38 PM EST Sexual Orientation Straight 04/09/2020 2: 24 PM EDT documented as of this encounter Plan of Treatment Not on file documented as of this encounter Visit Diagnoses Not on filedocumented in this encounter Care Teams Civil Clerk Relationship Specialty Start Date End Date Melyssa Major MD [address] [place] [address] PCP - General Pediatrics 10/13/22 10/21/24 documented as of this encounter
--- OUTSIDE RECORDS SUMMARY | 2025-05-16 12:41 | XMS_ITS | Encounter Summary ---
Author Organization [facility] Address [address] [place] [address] [place] [address] Phone Care Team Providers Care Student Services Dean Name Role Phone Rodolfo Medrano MD Primary Care Provider [phone] Reason for Referral * Consultation (Routine) - Closed Specialty Diagnoses / Procedures Referred By Contzi t Referred To Contact Neurology Diagnoses Encounter for consultation System, Provider Not In, [facility] [address] [address] Shaan Dennis MD, PhD Phone: tel: fax: mailto:[email or web address] Referral ID Status Reason Start Date Expiration Date Visits Re quested Visits Authorized [id number] Closed 09/29/2021 09/29/2022 6 6 Encounter Details Date Type Department Care Team (Late st Contact Info) Description 12/04/2020 Transcribe Orders [facility] Department of Neurology [address] [place] [address], 8th Floor, [address] [place] [address] System, Provider Not In, [facility] [address] [address] Encounter for consultation (Primary Dx) Social History Tobacco Use Types Packs/Day Years [...] 06/21/2025 9:00 AM EDT Office Visit [facility] Epilepsy Service [address] [place] [address], 8th Floor, [address] [place] [address] Eufemia Caputo MD,MPH,PhD [address] [place] [phone] [email or web address] Scheduled Referrals Name Type Priority Associated Diagnoses Orde r Schedule Ambulatory referral to [facility] Neurology Outpatient Referral Routine Encounter for consultation Ordered: 12/04/2020 documented as of this encounter Visit Diagnoses Diagnosis Encounter for consultation- Primary documented in this encounter Care Teams Student Services Dean Relationship Specialty Start Date End Date Rodolfo Medrano MD [address] [place] [address] PCP - General Pediatrics 12/04/20 documented as of this encounter Additional Source Comments The information contained in this document represents components of the legal health record. It is not the complete legal health record.[facility]
--- OUTSIDE RECORDS SUMMARY | 2025-05-16 12:41 | XMS_ITS | Encounter Summary ---
Author Organization [facility] Address [address] [place] [address] Care Team Providers Care Bevel Mill Operator Name Role Phone Dulce Ross Primary Care Provider [phone] Encounter Details Date Type Department Care Team (Late st Contact Info) Description 03/28/2025 Scanned Document [facility] [place] [phone] Unknown Unknow Provider Address Social History Tobacco [...] 8:20 AM EDT Office Visit [facility] [address], [facility] [address] [place] [phone] Gertrude Dos Santos MD [address] [place] [address] documented as of this encounter Visit Diagnoses Not on filedocumented in this encounter Care Teams Bevel Mill Operator Relationship Specialty Start Date End Date Dulce Ross PA [address] [place] [address] PCP - General General Medicine 05/14/25 documented as of this encounter
== END 2025-05-16 11:47 | disposition home or self-care (01) ==
LOC: HO.HMCFM 11:04
PROVIDERS: PCP Physician Assistant Medical; Visit Provider Physician Assistant Medical
DX: R00.0 Tachycardia, unspecified (principal); R07.9 Chest pain, unspecified; F41.9 Anxiety disorder, unspecified; F44.5 Conversion disorder with seizures or convulsions

== ENCOUNTER 2025-06-17 15:51 | Outpatient (AMB) | payer BC, SELFPAY ==
--- NOTE | 2025-06-17 15:59 | MHC.PC.OV ---
Vital Signs 06/17/25 16:03 Height 5 ft 4 in Weight 137 lb 4 oz BMI 23.6 BP 100/64 Blood Pressure Location Rt brachial Position Sitting Pulse 108 H Pulse Source Pulse Oximeter Temp 98.1 F Temp Source Temporal Artery Scan Pulse Oximetry (%) 98 Oxygen Delivery Method Room Air Intake Visit Reasons: med check anxiety Intake Note: Jessica presents in the office today for a medication check in/anxiety. Allergies jin (cherries) Allergy (Verified 06/17/25 16:01) Swelling Medication List - Last Reconciled 06/18/25 by TRES Kirkpatrick desogestrel-ethinyl estradiol 0.15-0.03 mg (Isibloom) 1 tab PO DAILY deucravacitinib (Sotyktu) 6 mg PO DAILY ferrous sulfate ER 137 mg PO .every other day levocetirizine (Xyzal) 5 mg PO DAILY naproxen (Naprosyn) 500 mg PO BID PRN ondansetron HCl 4 mg PO Q8H PRN venlafaxine ER (Effexor XR) 37.5 mg PO BEDTIME Tobacco use date assessed: 06/17/25 Dental Screening Dental Screen Date: 06/17/25 Did you have a dental visit in the last 12 months?: Yes Did you have a dental problem in the last 6 months where you did not have access to dental care?: No Was dental information given to patient?: Patient has dentist HPI HPI Comments History of Present Illness Details This is a 19-year-old female with a past medical history of a functional neurologic disorder, anxiety disorder and seizures presenting for follow up. Documented previously: I reviewed notes from Pediatrics. In October of 2020 she had a sudden onset of abnormal head and neck movements in the setting of increased anxiety. She was initially evaluated at the emergency department at [facility] with normal head and neck imaging. 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 She was treated with amoxicillin without resolution. Tics worsened including head banging and behavior changes and problems with speech and hand coordination. She started Prozac and was followed by integrative medicine. 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 In February she began to have seizure-like activity and was referred to Neurology. Differential included autoimmune encephalitis. She had a normal brain MR high and normal as encephalitis panel. She was seen at [facility] fall 2020. PANDAS thought to be unlikely. She was tapered off Prozac and put on fluvoxamine. She started guanfacine and stopped all antibiotics. She began working with occupational therapy. Working diagnosis of functional neurologic disorder. Sought multidisciplinary approach including Psychiatry, PT and OT. Also treated with the [place]il[place]o in the past. Attacks worsened by anxiety and stress but not directly caused by anxiety, instead maladaptive responses to major stressors. Since that time she has continued to have seizures once or twice a week. She has new concerns today about her heart rate. For the past couple of months she is experiencing increased heart rate. Heart rate has been as 170 and sustained this for at least 10 minutes. Reports heart rate increases when she stands up and she feels lightheaded and gets chest pain and mild shortness of breath. Patient reports device shows increase in heart rate when she stands by 30 beats per minute. When she was walking in here reports heart rate on her device was between 120-140. She was referred back to [facility] Neurology, and she has an appointment scheduled this Tuesday. Patient restarted fluvoxamine but had increased anxiety which worsened after upping the dose. She was taken off the medication. Patient says she has also tried Zoloft in the past. She is seeing therapist weekly in [place]. She says they are evaluating her for ADHD and autism. During seizures he is conscious and able to remain seated, but her head falls down and she has mild convulsions of her extremities sometimes. 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 Continues to get paresthesias in her legs intermittently. She does not feel depressed. Denies SI or HI. She saw [facility] Cardiology for her consult. Holter monitor and echocardiogram were negative aside from recording sinus tachycardia. She is trying to incorporate exercise as recommended by Cardiology. She has a history of psoriasis. She [facility], and she was referred to Rheumatology for concerns about psoriatic arthritis. She saw rheumatology [place] in May who brought up concerns about hypermobility. She ordered an xrays of the back, knees and ankles and additional lab results. A follow up as scheduled. She was recently started on Sotyktu. She endorses menstrual cramps. She is on the oral contraceptive pills. She is on a wait list to get in with Gynecology. ROS: Constitutional: No unexplained weight loss, fever, chills or night sweats. +fatigue Eyes: No vision changes, blurry vision, double vision Respiratory: Denies cough or wheezing Cardiovascular: See HPI. Gastrointestinal: No anorexia, nausea, vomiting or diarrhea. No abdominal pain or blood in stool. Neurologic: See HPI. Hematologic/Lymphatics: No bleeding or bruising. Endocrine: No cold or heat intolerance. No polyuria or polydipsia. Psychiatric: see HPI Physical exam: Constitutional: Alert, in no distress. Eyes: Pupils are equal, round and reactive to light. Extraocular muscles intact. Ear, Nose and Throat: Canals clear. TMs normal. Normal nasal mucosa. No nasal discharge. No oral lesions. Neck: Supple, Full range of motion. No palpable masses. Respiratory: Clear to auscultation. Cardiovascular: S1 S2 regular. No murmurs. Neurologic: No focal neurological deficits Psychiatric: + psychomotor agitation (tapping feet) [facility] Medical History (Updated 06/18/25 @ 11:15 by TRES Kirkpatrick) Menstrual cramps Lower extremity weakness Low ferritin Functional neurological symptom disorder with attacks or seizures Seizure disorder Anxiety Psoriasis Mass of soft tissue of neck Thyromegaly Chest pain Tachycardia Family History Maternal Grandfather Hypertension Hyperlipemia Paternal Grandfather Hypertension Brother Diabetes Social History (Updated 06/17/25 @ 16:03 by Lexi De Leon CMA) Housing: House Alcohol intake: never Patient Tobacco Use Status: Never used Tobacco e-Cigarette/Vaping Use: Never Used Second Hand Smoke Exposure: No service: No Current occupational status: employed Current occupation: [employer] Current occupational exposures/hazards: No Cognitive needs: No Hearing needs: No Vision needs: No Questionnaire Thrive Questionnaire Date Thrive assessed: 02/22/25 I am a: Patient What is your living situation today?: I have a steady place to live Within the past 12 months, did the food you bought not last and you didn't have the money to get more?: Never true Within the past 12 months, did you worry whether your food would run out before you got money to buy more?: Never true Do you have trouble paying for medicines?: No Do you have trouble getting transportation to medical appointments?: No Do you have trouble paying your heating and electricity bill?: No Do you have trouble taking care of your child, family member or friend?: No Do you have trouble with day-to-day activities such as bathing, preparing meals, shopping, managing finances, etc.?: No Are you currently unemployed and looking for a job?: No Are you interested in more education?: No Please select the resources that you would like help with: None Currently or been in a relationship where the following occur: No concerns reported THRIVE Score: 0 MARY JO-7 AMB Questionnaire MARY JO-7 Date MARY JO - 7 assessed: 06/17/25 Feeling nervous, anxious, or on edge: 2 = More than half the days Not being able to stop or control worryin = Several days Worrying too much about different things: 1 = Several days Trouble relaxin = More than half the days Being so restless that it is hard to sit still: 3 = Nearly every day Becoming easily annoyed or irritable: 1 = Several days Feeling afraid as if something awful might happen: 0 = Not at all Total MARY JO-7 score (0-4 normal; 5-9 mild; 10-14 moderate; 15-21 severe): 10 Source: Developed by Drs. Rodolfo Short, Niya Vallejo, Kevin Alves and colleagues, with an educational marisa from [employer]. MARY JO-7 Assessment Billing MARY JO-7 Assessment Tool: MARY JO-7 Assessment 80707 Physical exam (Primary Care) Vital Signs: Last Vital Signs Temp 98.1 F 06/17/25 16:03 Pulse 108 H 06/17/25 16:03 BP 100/64 06/17/25 16:03 Pulse Ox 98 06/17/25 16:03 Oxygen Delivery Method Room Air 06/17/25 16:03 BMI result Body Mass Index 23.6 Tobacco/Smoking Status: Tobacco use Status Tobacco use date assessed 06/17/25 06/17/25 16:05 Patient Tobacco Use Status Never used Tobacco 06/17/25 16:03 e-Cigarette/Vaping Use Never Used 06/17/25 16:03 Thrive Assessment: Date of Thrive Assessment Date Thrive assessed 02/22/25 06/17/25 16:00 Currently or been in a relationship where the following occur: No concerns reported Coding Level of Care Code Est Pt Level 4 (59082) Complex EM visit Add On G2211 Diagnoses Tachycardia R00.0 Anxiety F41.9 Functional neurological symptom disorder with attacks or seizures F44.5 Menstrual cramps N94.6 Additional Codes MARY JO-7 Assessment Billing - MARY JO-7 Assessment Tool: MARY JO-7 Assessment 63715 ([id number]) Assessment & Plan Assessment & Plan (1) Tachycardia: Code(s): R00.0 - Tachycardia, unspecified Category: Medical Plan: Evaluated by [facility] Cardiology. Holter monitor and echocardiogram were reassuring. Warning signs warranting ER evaluation reviewed with the patient. Avoid caffeine, stimulants and alcohol. Stay well hydrated throughout the day and eat regular meals. Reviewed the importance of stress reduction and sleep. Treat anxiety as noted below. (2) Anxiety: Code(s): F41.9 - Anxiety disorder, unspecified Category: Medical Plan: TSH normal. She is seeing a therapist. Prior treatment with fluvoxamine, sertraline, fluoxetine. Did not tolerate meds or meds were ineffective. We discussed other options. She would like to try an SNRI. Prescribed Effexor 37.5 mg daily. Black box warning and side effects reviewed. She will contact the office if she has any difficulty with it. (3) Functional neurological symptom disorder with attacks or seizures: Code(s): F44.5 - Conversion disorder with seizures or convulsions Category: Medical Plan: Patient underwent extensive workup and was ultimately given working diagnosis of functional neurologic disorder by [facility] Neurology. Treat anxiety as above. She is going to follow up with [facility] Neurology in June as planned due to continued seizure-like activity and paresthesias. (4) Menstrual cramps: Code(s): N94.6 - Dysmenorrhea, unspecified Category: Medical Plan: Naproxen 500 mg twice daily as needed with food for cramps. She is on the oral contraceptive pill and on a wait list for Gynecology. Plan Follow up in 2 weeks for a telehealth med check. Medications: New venlafaxine ER (Effexor XR) 37.5 mg PO BEDTIME 30 caps 1RF naproxen (Naprosyn) 500 mg PO BID PRN 30 tabs 0RF pain
[2025-06-17 16:03] VITALS: BP 100/64; PULSE 108; TEMP 36.7; O2SAT 98; BMI 23.6
--- OUTSIDE RECORDS SUMMARY | 2025-06-17 18:10 | XMS_ITS | Clinical Summary ---
Author Organization [facility] Address [address] [place] [address] Care Team Providers Care Diamond Sizer And Sorter Name Role Phone Rodolfo Medrano MD Primary Care Provider [phone] Source Comments Please note that some or all of the patient's information could have additional privacy protections. State laws allow health care providers to render certain types of treatment to minors without parental consent. Please do not assume that this information can be shared solely by obtaining just the consent of the patient's parent/guardian. Please determine if all or part of the patient's care was rendered without parent/guardian involvement. And, if so, obtain the minor's consent prior to disclosure.[facility] Allergies Active Allergy Reactions Criticality Noted Date Comments Cat Dander 04/03/2021 Dog Dander 04/03/2021 Tree And Shrub Pollen Itching 04/03/2021 De Land Pollen Itching 04/03/2021 Medications atovaquone (MEPRON) 750 mg/5 mL suspension Take 750 mg by mouth daily Active cefuroxime (CEFTIN) 500 MG tablet Take by mouth 2 (two) times daily Active FLUoxetine (PROZAC) 10 MG capsule Take 30 mg by mouth daily Active hydrOXYzine (VISTARIL) 25 MG capsule Take by mouth 3 (three) times daily as needed for Itching Active naltrexone (DEPADE) 50 mg tablet Take 50 mg by mouth daily Active naltrexone HCl, bulk, 100 % Powder Take by mouth Active theanine, bulk, 99.1 % Powder Take by mouth Active doxycycline (VIBRA-TABS) 100 MG tablet 02/16/2021 Activ e hydrOXYzine (ATARAX) 25 MG tablet 02/17/2021 Active ketoconazole (NIZORAL) 2 % shampoo 07/29/2020 Active valACYclovir (VALTREX) 500 MG tablet 12/23/2020 Active atovaquone (MEPRON) 750 mg/5 mL suspension 02/17/2021 Active FLUoxetine (PROZAC) 20 MG capsule 03/03/2021 Active Active Problems Problem Noted Date Diagnosed Date Babesiasis 04/03/2021 Abnormal ECG 04/03/2021 Anxiety 03/03/2021 Motor and vocal tic disorder 03/03/2021 Painful menstruation 03/03/2021 Behavior concern 03/03/2021 Other insomnia 03/03/2021 Social History Tobacco Use Types Packs/Day Years Used Date Smoking Tobacco: Never Smokeless Tobacco: Never Other Needs Answer Date Recorded Anything else about your child you'd like help w [facility]? Not on file 05/27/2023 Share good news about positive changes: Not on f ile 05/27/2023 Comments Unknown Sex and Gender Information Value Date Recorded Sex Assigned at Female 03/08/2021 7:20 PM EDT Legal Sex Female 4:05 PM EDT Gender Identity Female 03/08/2021 7:20 PM EDT Sexual Orientation Choose not to disclose 2020 7:20 PM EDT Last Filed Vital Signs Vital Sign Reading Time Taken Comments Blood Pressure 106/66 04/03/2021 11:45 AM EDT Pulse 84 04/03/2021 11:45 AM EDT Temperature 36.1 C (97 F) 03/10/2021 10:58 AM EDT Respiratory Rate 15 03/10/2021 10:5 3 AM EDT Oxygen Saturation 100% 04/03/2021 11: 45 AM EDT Inhaled Oxygen Concentration - - Weight 55.3 kg (121 lb 14.6 oz) 021 11:45 AM EDT Height 164.9 cm (5' 4.92 ) 04/03/2021 1 1:45 AM EDT Body Mass Index 20.34 04/03/2021 11:45 AM EDT Plan of Treatment Health Maintenance Due Date Last Done Comments DTaP/TDAP/TD VACCINES (1 - Tdap) 2010 ADOLESCENT HIV SCREENING 2016 COVID-19 Vaccine (2023-2 5 season) 2025 INFLUENZA (#1) 2025 NIRSEVIMAB VACCINES UNDER 8 MONTHS Aged Out No longer eligible based on patient's age to complete this topic Insurance BLUE CROSS Care Teams Diamond Sizer And Sorter Relationship Specialty Start Date End Date Rodolfo Medrano MD [address] [place] [address] [phone] PCP - General 01/02/21
--- OUTSIDE RECORDS SUMMARY | 2025-06-17 18:10 | XMS_ITS | Clinical Summary ---
Author Organization [facility] Address [address] [place] [address] Phone Care Team Providers Care Tie Tape Machine Operator Name Role Phone Unavailable Primary Care Provider [...] movements in the setting of increased anxiety. [facility] ER normal head and neck imaging. [...] to have seizure like activity. referral to [facility] neurology-ddx autoimmune encephalitis. Normal brain MRI and normal encephalitis panel. 06/02-08/02: [facility] tic clinic Dr. Vallejo-unlikely PANDAs, taper off prozac not helpful and start fluvoxamine. Start guanfacine. Stop all abx. Working with OT. Likely dx is functional neurological disorder 09/2021: [facility] neurology Dr. Dennis. Working dx [...] (02/03/2022 2:14 PM EDT): Followed by [facility] tic and movement clinic and neurology; [...] 11/02-06/02: prozac up to 40mg. 08/02: per [facility] Dr. Vallejo taper off prozac and start Fluvoxamine, dosing guidelines per MCPAP. 12/01: 150mg fluvoxamine. Has therapist and may be in with psychiatrist soon. 01/01: per Dr. Dennis [facility] neuro, thinks increase in fluvoxamine caused increased [...] will recheck end of summer at [facility]. Babesiasis 04/03/2021 Painful menstruation 03/03/2021 Overview (12/11/2021): 04/01: abd ultrasound recommended by [facility], L hemorrhagic ovarian cyst 05/02: repeat U/S, no suspicious hemorrhagic ovarian cyst seen. 10/03: start OCP Apri. Assessment & Plan (07/04/2024 8:46 AM EDT): Never called CONNIE SCRATCHER but has been taking control daily. Periods [...] Plan (04/08/2021 3:01 PM EDT): Followed by [facility] neurology, cardiology, and integrative medicine-working diagnosis of PANDAS. Will have apt at [facility] with tic specialist. Brain MRI normal, [...] week and mom will reach out to [facility] to plan next follow up. Assessment & Plan (03/12/2021 1:03 PM EDT): Motor and vocal tics have continued to progress these last 4-5 months, with maybe a little lessening since school has let out this past month. Most recently evaluated at [facility] neurology on 03/03/21 and underwent a brain [...] undergone significant testing through integrative medicine in [place] and being treated for lyme and allergies. [...] She has a follow up [facility] week and a follow up [facility] with wi end of this month. Assessment & Plan [...] complete this topic Procedures * Due to [facility] law, this organization might not be sharing sensitive test results. Procedure Name Priority Date/Time Associated Diagnosis Comments CHLAMYDIA AND GONORRHEA, AMPLIFIED Routine 07/04/2024 8:37 AM EDT Well adult exam from Last 3 Months or Most Recently Relevant to Health Maintenance Results * Due to [place] [employer] law, this organization might not be sharing sensitive test results. * Chlamydia and Gonorrhea, Amplified (07/04/2024 8:37 AM EDT) C trach MARCELLE Negative Negative [facility] N gonorrhoeae MARCELLE Negative Negative [facility] Urine (Urine) 07/04/2024 8:3 7 AM EDT 07/04/2024 Comment:URINE Narrative [facility] - 07/05/2024 9:06 PM EDT Performed at: 01 - [facility] [address], [address], [place], [place] [id number] Wood Heel Attacher: Joe Hinojosa MD, Phone: [phone] Keiry Melissa NP LAB MICROBIOLOGY - GENERAL O RDERABLES Final Result Performing Organization Address City/State/[facility] Co de Phone Number [facility] [address] [place] [address] from Last 3 Months or Most Recently Relevant to Health Maintenance Insurance [facility] HMO [facility]
--- OUTSIDE RECORDS SUMMARY | 2025-06-17 18:10 | XMS_ITS | Encounter Summary ---
Author Organization [facility] Address [address] [place] [address] [place] [address] Phone Care Team Providers Care [employer] Name Role Phone Rodolfo Medrano MD Primary Care Provider [phone]- [phone] Reason for Visit * Reason Comments Medication Refill Encounter Details Date Type Department Care Team (Late st Contact Info) Description 12/27/[address] [facility] [address] [facility] 10th [place] [address] Kamran Vallejo MD, PhD [facility] [address] [place] [address] [email or web address] Medication Refill Social History Tobacco Use Types [...] Description 06/21/2025 9:00 AM EDT Office Visit [facility] Epilepsy Service [address] [place] [address], 8th Floor, [address] [place] [address] Eufemia Caputo MD,MPH,PhD [address] [place] [address] [place] [phone] [email or web address] documented as of this encounter Visit Diagnoses Not on filedocumented in this encounter Care Teams [employer] Relationship Specialty Start Date End Date Rodolfo Medrano MD [address] [place] [address] PCP - General Pediatrics 12/04/20 documented as of this encounter Additional Source Comments The information contained in this document represents components of the legal health record. It is not the complete legal health record.[facility]
--- OUTSIDE RECORDS SUMMARY | 2025-06-17 18:10 | XMS_ITS | Clinical Summary ---
Author Organization [facility] Address [address] [place] [address] Phone Care Team Providers Care [employer] Name Role Phone Rodolfo Medrano MD Primary Care Provider +1- [phone] Allergies No known active allergies Medications ISIBLOOM [...] Upcoming Encounters Date Type Department Care Team ([facility] st Contact Info) Description 06/21/2025 9:00 AM EDT Office [place] [facility] [address] [place] [address], 8th Floor, [address] [place] [address] Eufemia Caputo MD,MPH,PhD [address] [place] [phone] [email or web address] Health Maintenance Due Date Last Done Comments DEPRESSION SCREENING 2015 SMOKING Hx and SMOKELESS TOBACCO SCREENING 2016 CHLAMYDIA SCREENING 2019 MENINGOCOCCAL VACCINES (B) (1 of 2 - Standard) 2019 ADOLESCENT UNIVERSAL LIPID SCREENING 2020 HEPATITIS C SCREENING 2021 HIV ONE-TIME SCREENING (18-65 YEARS) 2021 PAP SMEAR 2024 INFLUENZA VACCINE (#1) 2025 08/16/2011 COVID-19 VACCINE (1 - season) 2025 Adult Td,Tdap Booster 04/15/2033 04/15/2023, 015 COMBINED DTaP,Tdap,Td (8 - Td or Tdap) 04/15/2033 04/15/2023, 03/18/2015, 03/06/2009, Additional history exists HIB VACCINES Completed 01/05/2005, 03/13, 01/28/2004, Additional history exists MMR VACCINES Completed 03/05/2008, 09/29/2004 HPV VACCINES Completed 03/19/2016, 04/2015, 03/18/2015 HEPATITIS A VACCINES Completed 03/30/2018, 03/28/20 17 MENINGOCOCCAL VACCINES (ACWY) Completed 04/09/2020, 03/18/2015 PNEUMOCOCCAL VACCINES (0-49 years) Aged Out No longer eligible based on patient's age to complete this topic Medical Devices Not on file Insurance [facility] POS Member Subscriber Plan / Payer (Ef fective 2012-2025) Name:Jessica Paige Relation to Subscriber:Child Name:DAKOTAH GARNICA Date of :1974 (Home) Address: [address] [place] [address] Payer ID:[id number] (NAIC) Type:O Address: [address] [facility] Member Subscriber Plan / Payer (Ef fective 2012-2025) Name:Jessica Paige Relation to Subscriber:Child Name:DAKOTAH GARNICA Date of :1976 (Home) Address: [address] [place] [address] Payer ID:[id number] (NAIC) Type:HMO Address: [address] [facility] POS [facility] [place] [address] [address] [place] [address] [facility] [place] [address] [address] [address] [facility] O [place] [address] [place] [address] [place] [address] [address] [place] [address] [place] [address] POS [facility] [place] [address] [place] [address] [place] [address] [place] [address] HMO POS [facility] HMO POS Care Teams [employer] Relationship Specialty Start Date End Date Rodolfo Medrano MD [address] [place] [address] PCP - General Pediatrics 12/04/20 Additional Source Comments The information contained in this document represents components of the legal health record. It is not the complete legal health record.[facility]
--- OUTSIDE RECORDS SUMMARY | 2025-06-17 18:10 | XMS_ITS | Clinical Summary ---
Author Organization [facility] Address [address] [place] [address] Care Team Providers Care Sizing Sprayer Name Role Phone Dulce Ross Primary Care Provider Allergies No known active allergies Medications Desogestrel-Ethi [...] Encounters Date Type Department Care Team Description 05/30/2025 Scanned Document [facility] [address], [address] [address] Unknown 05/24/2025 Scanned Document [facility], [address], [address] [address] Unknown 05/16/2025 Orders Only [facility] [address] [place] [address] Gertrude Dos Santos MD 05/16/2025 Orders Only [facility] [address] [place] [address] Gertrude Dos Santos MD 05/16/2025 Orders Only [facility] [address] [place] [address] Gertrude Dos Santos MD 05/16/2025 Orders Only [facility] [address] [place] [address] Gertrude Dos Santos MD 05/14/2025 9:00 AM EDT [facility], [place] [address] Gertrude Dos Santos MD Arthralgia, unspecified joint (Primary Dx); Psoriasis ; Mid back pain 03/28/2025 Scanned Document Rheumatology [facility], [address], [place] [address] Unknown 03/27/2025 Scanned Document Rheumatology [facility] [address] [place] [address] Unknown 03/27/2025 Scanned Document Rheumatology [address], [place] [address] Unknown from Last 3 Months Family History [...] 07/10/2025 8:20 AM EDT [facility] [address] [address] [place] [address] Gertrude Dos Santos MD 195 [facility] 201 [place] [address] Health Maintenance Due Date Last Done Comments [...] patient's age to complete this topic Procedures Procedure Name Priority Date/Time Associated Diagnosis Comments RHEUMATOID FACTOR Routine 05/20/2025 10: 54 AM EDT Arthralgia, unspecified joint Psoriasis Mid back pain ANALYZER(TM)EDMOND, IFA WITH REFLEX TITER/PATTERN, SYSTEMIC AUTOIMMUNE PANEL 1 Routine 05/20/2025 10:54 AM EDT Arthralgia, unspecified joint Psoriasis Mid back pain C-REACTIVE PROTEIN Routine 05/20/2025 10 :54 AM EDT Arthralgia, unspecified joint Psoriasis Mid back pain ERYTHROCYTE SEDIMENTATION RATE (ESR) Routine 05/20/2025 10:54 AM EDT Arthralgia, unspecified joint Psoriasis Mid back pain HLA - B27 ANTIGEN Routine 05/20/2025 10: 54 AM EDT Arthralgia, unspecified joint Psoriasis Mid back pain XR RT KNEE 1 OR 2 VIEWS Routine 05/16/2025 3:16 PM EDT XR LT KNEE 1 OR 2 VIEWS Routine 05/16/2025 3:16 PM EDT XR LT ANKLE 2 VIEWS Routine 05/16/2025 3 :15 PM EDT XR RT ANKLE 2 VIEWS Routine 05/16/2025 3 :15 PM EDT XR THORACIC SPINE 2 VIEWS Routine 05/16/2025 3:14 PM EDT Mid back pain from Last 3 Months Results * Analyzer???,EDMOND,IFA With Reflex Titer/Pattern, Systemic Autoimmune Panel 1 (05/20/2025 10:54 AM EDT) EDMOND Screen, IFA NEGATIVE NEGATIVE [facility], Comment: EDMOND IFA is a first line screen for detecting the presence of up to approximately 150 autoantibodies in various autoimmune diseases. A negative EDMOND IFA result suggests an EDMOND-associated autoimmune disease is not present at this time, but is not definitive. If there is high clinical suspicion for Sjogren's syndrome, testing for anti-SS-A/Ro antibody should be considered. Anti-Tamie-1 antibody should be considered for clinically suspected inflammatory myopathies. AC-0: Negative International Consensus on EDMOND Patterns https://doi.org/10.1515/jpob-6298-1774 For additional information, please refer to http://education.[employer].EventTool/faq/POC433 (This link is being provided for informational/educational purposes only.) DNA (ds) Antibody Screen NEGATIVE NEGATIVE [facility], Chromatin (Nucleosomal) Antibody <1.0 NEG <1.0 NEGATIVE AI [facility], Sm (Pritchett) Antibody <1.0 NEG <1.0 NEGATIVE AI [facility], Sm/ROD CUP FILLER Antibody <1.0 NEG <1.0 NEGATIVE AI [facility], ROD CUP FILLER <1.0 NEG <1.0 NEGATIVE AI [facility], Ro (SSA) Antibody <1.0 NEG <1.0 NEGATIVE AI [facility] [place] (SSB) Antibody <1.0 NEG <1.0 NEGATIVE AI [facility], Scl-70 Antibody <1.0 NEG <1.0 NEGATIVE AI [facility], Tamie-1 Antibody <1.0 NEG <1.0 NEGATIVE AI [facility], Centromere Antibody <1.0 NEG <1.0 NEGATIVE AI [facility]/ [facility], Complement C3 157 83 - 193 mg/dL [facility], Complement C4 22 15 - 57 mg/dL [facility], Cardiolipin IgA Antibody <2.0 APL-U/mL [facility]/ [facility], Comment: Value Interpretation ----- <20.0 Antibody not detected > or = 20.0 Antibody detected Cardiolipin IgG Antibody <2.0 GPL-U/mL [facility]/ [facility], Comment: Value Interpretation ----- <20.0 Antibody not detected > or = 20.0 Antibody detected Cardiolipin IgM Antibody <2.0 MPL-U/mL [facility]/ [facility], Comment: Value Interpretation ----- <20.0 Antibody not detected > or = 20.0 Antibody detected B2 Glycoprotein I (Iga)Ab <2.0 U/mL [facility]/ [facility], Comment: Value Interpretation ----- <20.0 Antibody not detected > or = 20.0 Antibody detected B2 Glycoprotein I (Igg)Ab <2.0 U/mL [facility]/ [facility], Comment: Value Interpretation ----- <20.0 Antibody not detected > or = 20.0 Antibody detected B2 Glycoprotein I (Igm)Ab <2.0 U/mL [facility]/ [facility], Comment: The antiphospholipid antibody syndrome (APS) is a clinical-pathologic correlation that includes a clinical event (e.g. arterial or venous thrombosis, morbidity) and persistent positive antiphospholipid antibodies (IgM, IgG Cardiolipin or b2GPI antibodies greater than the 99th percentile; or a lupus anticoagulant). International consensus guidelines for APS suggest waiting at least 12 weeks before retesting to confirm antibody persistence. The Systemic Lupus International Collaborating Clinics immunological classification criteria for systemic lupus erythematosus (SLE) include testing for isotype IgA, which has yet to be incorporated into APS criteria. Low level antiphospholipid antibodies may sometimes be detected in the setting of infection, drug therapy or aging. For additional information, please refer to http://education.iZotope/faq/GGH660 (This link is being provided for informational/educational purposes only.) Value Interpretation ----- <20.0 Antibody not detected > or = 20.0 Antibody detected Rheumatoid Factor IgA <5 U [facility]/ [facility], Comment: Reference Range: <=6 NEGATIVE >6 POSITIVE Rheumatoid Factor IgG <5 U [facility], Comment: Reference Range: <=6 NEGATIVE >6 POSITIVE Rheumatoid Factor IgM <5 U [facility], Comment: Reference Range: <=6 NEGATIVE >6 POSITIVE CCP IgG Antibodies <16 Units Q [facility]/ [facility], Comment: Reference Range: NEGATIVE: <20 WEAK POSITIVE: 20-39 MODERATE POSITIVE: 40-59 STRONG POSITIVE >59 Mutated Citrullinated Vimentin (MCV) AB <20 <20 U/mL [facility], Comment: Anti-mutated citrullinated vimentin antibody may be used as a second-line marker of rheumatoid arthritis, in addition to rheumatoid factor and anti-cyclic citrullinated peptide (CCP). Thyroid Peroxidase Antibody <1 <9 IU/mL [facility], Blood Blood specimen / Unknown 05/20/2025 10:54 AM EDT 05/20/2025 10:56 AM EDT Narrative [facility] - 05/28/2025 2:41 PM EDT FASTING:NO FASTING: NO Gertrude Dos Santos MD LAB BLOOD ORDERABLES Final R esult Performing Organization Address City/[facility] Co de Phone Number [facility], [address] [place] [address] * HLA - B27 Antigen (05/20/2025 10:54 AM EDT) HLA - B27 Antigen Negative Negative [facility] Blood Blood specimen / Unknown 05/20/2025 10:54 AM EDT 05/20/2025 10:56 AM EDT Narrative [facility] - 05/28/2025 2:41 PM EDT FASTING:NO FASTING: NO Gertrude Dos Santos MD LAB BLOOD ORDERABLES Final R esult Performing Organization Address [facility] Co de Phone Number [facility] [address] [facility] [place] [address] * Erythrocyte Sedimentation Rate (ESR) (05/20/2025 10:54 AM EDT) Pathologist [facility] Erythrocyte Sediment Rate (ESR) 17 < OR = 20 mm/h [facility] Blood Blood specimen / Unknown 05/20/2025 10:54 AM EDT 05/20/2025 10:56 AM EDT Narrative [facility] - 05/28/2025 2:41 PM EDT FASTING:NO FASTING: NO Gertrude Dos Santos MD LAB BLOOD ORDERABLES Final R esult Performing Organization Address City/[facility] Co de Phone Number [facility] [address] [place] [phone] * RHEUMATOID FACTOR (05/20/2025 10:54 AM EDT) Rheumatoid Factor <10 <14 IU/mL [facility] [employer] [facility] Blood Blood specimen / Unknown 05/20/2025 10:54 AM EDT 05/20/2025 10:56 AM EDT Narrative [facility] - 05/28/2025 2:41 PM EDT FASTING:NO FASTING: NO Gertrude Dos Santos MD LAB BLOOD ORDERABLES Final R esult Performing Organization Address [facility] Co de Phone Number [facility] [address] [place] [phone] * C-REACTIVE PROTEIN (05/20/2025 10:54 AM EDT) C-Reactive Protein <3.0 <8.0 mg/L [facility] Blood Blood specimen / Unknown 05/20/2025 10:54 AM EDT 05/20/2025 10:56 AM EDT Narrative [facility] - 05/28/2025 2:41 PM EDT FASTING:NO FASTING: NO us Gertrude Dos Santos MD LAB BLOOD ORDERABLES Final R esult Performing Organization Address [facility] Co de Phone Number [facility] [address] [place] [phone] * XR RT KNEE 1 OR 2 VIEWS (05/16/2025 3:16 PM EDT) Anatomical Region Laterality Modality Other 05/16/2025 3:15 PM EDT 05/16/2025 3:15 PM EDT Impressions 05/17/2025 12:42 PM EDT Unremarkable examination. Electronically signed by: Jason Wagner MD 05/17/2025 12:42 PM EDT Thank you for referring your patient to us, Jason Wagner MD [id number] (Electronically Signed - 05/17/2025 12:42) Copy: DULCE JOSHUA [address] [address] PATIENT , Narrative 05/17/2025 12:42 PM EDT EXAMINATION: XR KNEE, RIGHT XR KNEE, LEFT CLINICAL INFORMATION: Arthralgia, unspecified joint. Bilateral knee pain. COMPARISON: None available. TECHNIQUE: AP and lateral views of the right and left knee. FINDINGS: RIGHT KNEE: Bones and soft tissues are normal. No fracture or joint effusion. Alignment is anatomic. Joint spaces are well maintained. No abnormal soft tissue calcification. LEFT KNEE: Bones and soft tissues are normal. No fracture or joint effusion. Alignment is anatomic. Joint spaces are well maintained. No abnormal soft tissue calcification. Procedure Note Jason Wagner MD - 05/17/2025 EXAMINATION: XR KNEE, RIGHT XR KNEE, LEFT CLINICAL INFORMATION: Arthralgia, unspecified joint. Bilateral knee pain. COMPARISON: None available. TECHNIQUE: AP and lateral views of the right and left knee. FINDINGS: RIGHT KNEE: Bones and soft tissues are normal. No fracture or joint effusion.Alignment is anatomic. Joint spaces are well maintained. No abnormal softtissue calcification. LEFT KNEE: Bones and soft tissues are normal. No fracture or joint effusion.Alignment is anatomic. Joint spaces are well maintained. No abnormal softtissue calcification. IMPRESSION: Unremarkable examination. Electronically signed by: Jason Wagner MD 05/17/2025 12:42 PM EDT RPWorkstation: [id number] Thank you for referring your patient to us, Jason Wagner MD [phone] (Electronically Signed - 05/17/2025 12:42) Copy: DULCE JOSHUA [address] [id number] PATIENT , us Gertrude Dos Santos MD IMG LEGACY PROCEDURES Final Result * XR LT KNEE 1 OR 2 VIEWS (05/16/2025 3:16 PM EDT) Anatomical Region Laterality Modality Other 05/16/2025 3:15 PM EDT 05/16/2025 3:15 PM EDT Impressions 05/17/2025 12:42 PM EDT Unremarkable examination. Electronically signed by: Jason aWgner MD 05/17/2025 12:42 PM EDT RP Thank you for referring your patient to us, Jason Wagner MD [phone] (Electronically Signed - 05/17/2025 12:42) Copy: DULCE JOSHUA [facility] [address] [facility] [place] [address] PATIENT , Narrative 05/17/2025 12:42 PM EDT EXAMINATION: XR KNEE, RIGHT XR KNEE, LEFT CLINICAL INFORMATION: Arthralgia, unspecified joint. Bilateral knee pain. COMPARISON: None available. TECHNIQUE: AP and lateral views of the right and left knee. FINDINGS: RIGHT KNEE: Bones and soft tissues are normal. No fracture or joint effusion. Alignment is anatomic. Joint spaces are well maintained. No abnormal soft tissue calcification. LEFT KNEE: Bones and soft tissues are normal. No fracture or joint effusion. Alignment is anatomic. Joint spaces are well maintained. No abnormal soft tissue calcification. Procedure Note Jason Wagner MD - 05/17/2025 EXAMINATION: XR KNEE, RIGHT XR KNEE, LEFT CLINICAL INFORMATION: Arthralgia, unspecified joint. Bilateral knee pain. COMPARISON: None available. TECHNIQUE: AP and lateral views of the right and left knee. FINDINGS: RIGHT KNEE: Bones and soft tissues are normal. No fracture or joint effusion.Alignment is anatomic. Joint spaces are well maintained. No abnormal softtissue calcification. LEFT KNEE: Bones and soft tissues are normal. No fracture or joint effusion.Alignment is anatomic. Joint spaces are well maintained. No abnormal softtissue calcification. IMPRESSION: Unremarkable examination. Electronically signed by: Jason Wagner MD 05/17/2025 12:42 PM EDT RPWorkstation: [id number] Thank you for referring your patient to us, Jason Wagner MD [id number] (Electronically Signed - 05/17/2025 12:42) Copy: [facility] [address] [facility] [address] PATIENT , Gertrude Dos Santos MD IMG LEGACY PROCEDURES Final Result * XR RT ANKLE 2 VIEWS (05/16/2025 3:15 PM EDT) Anatomical Region Laterality Modality Other 05/16/2025 3:00 PM EDT 05/16/2025 3:00 PM EDT Impressions 05/17/2025 12:41 PM EDT Unremarkable examination. Electronically signed by: Jason Wagner MD 05/17/2025 12:41 PM EDT RP Thank you for referring your patient to us, Jason Wagner MD [phone] (Electronically Signed - 05/17/2025 12:41) Copy: DULCE JOSHUA [facility] [address] [place] [address] PATIENT , Narrative 05/17/2025 12:41 PM EDT EXAMINATION: XR ANKLE, RIGHT XR ANKLE, LEFT CLINICAL INFORMATION: Arthralgia, unspecified joint. Bilateral ankle pain, please evaluate for Achilles tendon enthesopathy. COMPARISON: None available. TECHNIQUE: AP and lateral of each ankle. FINDINGS: RIGHT ANKLE: No fracture. Alignment is anatomic. Ankle mortise is symmetric. Joint spaces are maintained. No ankle joint effusion. Soft tissues are normal. No dorsal calcaneal spurring. LEFT ANKLE: No fracture. Alignment is anatomic. Ankle mortise is symmetric. Joint spaces are maintained. No ankle joint effusion. Soft tissues are normal. No dorsal calcaneal spurring. Procedure Note Jason Wagner MD - 05/17/2025 EXAMINATION: XR ANKLE, RIGHT XR ANKLE, LEFT CLINICAL INFORMATION: Arthralgia, unspecified joint. Bilateral ankle pain, please evaluate forAchilles tendon enthesopathy. COMPARISON: None available. TECHNIQUE: AP and lateral of each ankle. FINDINGS: RIGHT ANKLE: No fracture. Alignment is anatomic. Ankle mortise is symmetric. Jointspaces are maintained. No ankle joint effusion. Soft tissues are normal.No dorsal calcaneal spurring. LEFT ANKLE: No fracture. Alignment is anatomic. Ankle mortise is symmetric. Jointspaces are maintained. No ankle joint effusion. Soft tissues are normal.No dorsal calcaneal spurring. IMPRESSION: Unremarkable examination. Electronically signed by: Jason Wagner MD 05/17/2025 12:41 PM EDT RPWorkstation: [id number] Thank you for referring your patient to us, Jason Wagner MD [phone] (Electronically Signed - 05/17/2025 12:41) Copy: DULCE JOSHUA [facility] [address] [place], [place] [id number] PATIENT , Gertrude Dos Santos MD IMG LEGACY PROCEDURES Final Result * XR LT ANKLE 2 VIEWS (05/16/2025 3:15 PM EDT) Anatomical Region Laterality Modality Other 05/16/2025 3:00 PM EDT 05/16/2025 3:00 PM EDT Impressions 05/17/2025 12:41 PM EDT Unremarkable examination. Electronically signed by: Jason Wagner MD 05/17/2025 12:41 PM EDT RP Thank you for referring your patient to us, Jason Wagner MD [id number] (Electronically Signed - 05/17/2025 12:41) Copy: DULCE JOSHUA [facility] [address] [place] [address] PATIENT , Narrative 05/17/2025 12:41 PM EDT EXAMINATION: XR ANKLE, RIGHT XR ANKLE, LEFT CLINICAL INFORMATION: Arthralgia, unspecified joint. Bilateral ankle pain, please evaluate for Achilles tendon enthesopathy. COMPARISON: None available. TECHNIQUE: AP and lateral of each ankle. FINDINGS: RIGHT ANKLE: No fracture. Alignment is anatomic. Ankle mortise is symmetric. Joint spaces are maintained. No ankle joint effusion. Soft tissues are normal. No dorsal calcaneal spurring. LEFT ANKLE: No fracture. Alignment is anatomic. Ankle mortise is symmetric. Joint spaces are maintained. No ankle joint effusion. Soft tissues are normal. No dorsal calcaneal spurring. Procedure Note Jason Wagner MD - 05/17/2025 EXAMINATION: XR ANKLE, RIGHT XR ANKLE, LEFT CLINICAL INFORMATION: Arthralgia, unspecified joint. Bilateral ankle pain, please evaluate forAchilles tendon enthesopathy. COMPARISON: None available. TECHNIQUE: AP and lateral of each ankle. FINDINGS: RIGHT ANKLE: No fracture. Alignment is anatomic. Ankle mortise is symmetric. Jointspaces are maintained. No ankle joint effusion. Soft tissues are normal.No dorsal calcaneal spurring. LEFT ANKLE: No fracture. Alignment is anatomic. Ankle mortise is symmetric. Jointspaces are maintained. No ankle joint effusion. Soft tissues are normal.No dorsal calcaneal spurring. IMPRESSION: Unremarkable examination. Electronically signed by: Jason Wagner MD 05/17/2025 12:41 PM EDT RPWorkstation: [id number] Thank you for referring your patient to us, Jason Wagner MD [phone] (Electronically Signed - 05/17/2025 12:41) Copy: DULCE JOSHUA [facility] [address] [place], [place] [phone] PATIENT , us Gertrude Dos Santos MD IMG LEGACY PROCEDURES Final Result * XR Thoracic spine 2 views (05/16/2025 3:14 PM EDT) Anatomical Region Laterality Modality T-spine Computed Radiogr aphy 05/16/2025 2:30 PM EDT 05/16/2025 2:30 PM EDT Impressions 05/17/2025 12:42 PM EDT Unremarkable examination. Electronically signed by: Jason Wagner MD 05/17/2025 12:42 PM EDT RP Thank you for referring your patient to us, Jason Wagner MD [id number] (Electronically Signed - 05/17/2025 12:42) Copy: DULCE JOSHUA [facility] [address] [place] [address] PATIENT , Narrative 05/17/2025 12:42 PM EDT EXAMINATION: XR THORACIC SPINE CLINICAL INFORMATION: Dorsalgia, unspecified. Mid back pain. Rule out arthritis. COMPARISON: None available. TECHNIQUE: AP, lateral, and swimmers views of the thoracic spine FINDINGS: Vertebral body heights are normal. Alignment is anatomic without spondylolisthesis. Intervertebral disc heights are well-maintained. No degenerative disc disease. Paraspinal soft tissues are unremarkable. No osseous lesions are identified. Procedure Note Jason Wagner MD - 05/17/2025 EXAMINATION: XR THORACIC SPINE CLINICAL INFORMATION: Dorsalgia, unspecified. Mid back pain. Rule out arthritis. COMPARISON: None available. TECHNIQUE: AP, lateral, and swimmers views of the thoracic spine FINDINGS: Vertebral body heights are normal. Alignment is anatomic withoutspondylolisthesis. Intervertebral disc heights are well-maintained. Nodegenerative disc disease. Paraspinal soft tissues are unremarkable. Noosseous lesions are identified. IMPRESSION: Unremarkable examination. Electronically signed by: Jason Wagner MD 05/17/2025 12:42 PM EDT RPWorkstation: [id number] Thank you for referring your patient to us, Jason Wagner MD [phone] (Electronically Signed - 05/17/2025 12:42) Copy: DULCE JOSHUA [address] [address] PATIENT , us Gertrude Dos Santos MD IMG DIAGNOSTIC IMAGING ORDER [place]ANT[place]H Final Result from Last [address] [place] [address] [place] [address] - [facility] Care Teams Sizing Sprayer Relationship Specialty Start Date End Date Dulce Ross PA [address] [place] [phone] PCP - General General Medicine 05/14/25
--- OUTSIDE RECORDS SUMMARY | 2025-06-17 18:10 | XMS_ITS | Encounter Summary ---
Author Organization [facility] Address [address] [place] [address] Phone Care Team Providers Care Global Logistics Analyst Name Role Phone Melyssa Major MD Primary Care Provider Encounter Details Date Type Department Care Team (Late st Contact Info) Description 01/29/2018 Conversion [facility]counter [facility] [address] [address] Kelsea Tao MD [address] [place] [address] Social History Tobacco Use Types Packs/Day Years [...] on filedocumented in this encounter Care Teams Global Logistics Analyst Relationship Specialty Start Date End Date Melyssa Major MD [address] [place] [address] PCP - General Pediatrics 10/13/22 10/21/24 documented as of this encounter
--- OUTSIDE RECORDS SUMMARY | 2025-06-17 18:10 | XMS_ITS | Encounter Summary ---
Author Organization [facility] Address [address] [place] [address] Care Team Providers Care Clin Nurse Name Role Phone Dulce Ross Primary Care Provider [phone] Encounter Details Date Type Department Care Team (Late st Contact Info) Description 03/27/2025 Scanned Document [facility], [address] [place] [phone] Unknown Unknow Provider Address Social History Tobacco [...] 8:20 AM EDT [facility] Visit [facility], [facility] [address] [facility] [address] [place] [phone] Gertrude Dos Santos MD 195 [facility] [address] [place] [address] documented as of this encounter Visit Diagnoses Not on filedocumented in this encounter Care Teams Clin Nurse Relationship Specialty Start Date End Date Dulce Ross PA [address] [place] [phone] PCP - General General Medicine 05/14/25 documented as of this encounter
--- OUTSIDE RECORDS SUMMARY | 2025-06-17 18:10 | XMS_ITS | Encounter Summary ---
Author Organization [facility] Address [address] [place] [address] Care Team Providers Care Plastic Card Grader Cardroom Name Role Phone Dulce Ross Primary Care Provider [phone] Encounter Details Date Type Department Care Team (Late st Contact Info) Description 03/28/2025 Scanned Document [facility], [address] [place] [phone] Unknown Unknow Provider Address Social History Tobacco [...] 8:20 AM EDT [facility] Visit [facility], [facility] [address] [facility] [address] [place] [phone] Gertrude Dos Santos MD 195 [facility] [address] [place] [address] documented as of this encounter Visit Diagnoses Not on filedocumented in this encounter Care Teams Plastic Card Grader Cardroom Relationship Specialty Start Date End Date Dulce Ross PA [address] [place] [id number] PCP - General General Medicine 05/14/25 documented as of this encounter
--- OUTSIDE RECORDS SUMMARY | 2025-06-17 18:10 | XMS_ITS | Encounter Summary ---
Author Organization [facility] Address [address] [place] [address] Care Team Providers Care Division Manager Name Role Phone Dulce Ross Primary Care Provider [phone] Encounter Details Date Type Department Care Team (Late st Contact Info) Description 05/24/2025 Scanned Document [facility] 195 [facility] 201 [place] [phone] Unknown Unknow Provider Address Social History Tobacco Use Types Packs/Day Years Used Date Smoking Tobacco: Never Alcohol Use Standard Drinks/Week Comments Never 0 [...] 8:20 AM EDT Office Visit [facility] [place] [phone] Gertrude Dos Santos MD [address] [facility] [address] [place], [place] [phone] documented as of this encounter Visit Diagnoses Not on filedocumented in this encounter Care Teams Division Manager Relationship Specialty Start Date End Date Dulce Ross PA [address] [place] [address] PCP - General General Medicine 05/14/25 documented as of this encounter
--- OUTSIDE RECORDS SUMMARY | 2025-06-17 18:10 | XMS_ITS | Encounter Summary ---
Author Organization [facility] Address [address] [place] [address] [place] [address] Phone Care Team Providers Care Roll Cutter Name Role Phone Rodolfo Medrano MD Primary Care Provider [phone] Reason for Referral * Consultation (Routine) - Closed Specialty Diagnoses / Procedures Referred By Contzi t Referred To Contact Neurology Diagnoses Encounter for consultation System, Provider Not In, [facility] [address] [address] Shaan Dennis MD, PhD Phone: tel: fax: mailto:[email or web address] Referral ID Status Reason Start Date Expiration Date Visits Re quested Visits Authorized [id number] Closed 09/29/2021 09/29/2022 6 6 Encounter Details Date Type Department Care Team (Late st Contact Info) Description 12/04/2020 Transcribe Orders [facility] Department of Neurology [address] [place] [address], 8th Floor, [address] [place] [address] System, Provider Not In, [facility] [address] [address] Encounter for consultation (Primary Dx) Social History [...] Description 06/21/2025 9:00 AM EDT Office Visit [facility] Epilepsy Service [address] [place] [address], 8th Floor, [address] [place] [address] Eufemia Caputo MD,MPH,PhD [address] [place] [address] [place] [phone] [email or web address] Scheduled Referrals Name Type Priority Associated Diagnoses Orde r Schedule Ambulatory referral to [facility] Neurology Outpatient Referral Routine Encounter for consultation Ordered: 12/04/2020 documented as of this encounter Visit Diagnoses Diagnosis Encounter for consultation- Primary documented in this encounter Care Teams Roll Cutter Relationship Specialty Start Date End Date Roodlfo Medrano MD [address] [place] [address] PCP - General Pediatrics 12/04/20 documented as of this encounter Additional Source Comments The information contained in this document represents components of the legal health record. It is not the complete legal health record.[facility]
--- OUTSIDE RECORDS SUMMARY | 2025-06-17 18:10 | XMS_ITS | Encounter Summary ---
Author Organization [facility] Address [address] [place] [address] Care Team Providers Care Utility Driver Name Role Phone Dulce Ross Primary Care Provider [phone] Encounter Details Date Type Department Care Team (Late st Contact Info) Description 05/30/2025 Scanned Document [facility] 195 [facility] 201 [place] [phone] Unknown Unknow Provider Address Social History Tobacco [...] Visit [facility]223 [address] [place] [phone] Gertrude Dos Santos MD 195 [facility] [address] [place], [place] [phone] documented as of this encounter Visit Diagnoses Not on filedocumented in this encounter Care Teams Utility Driver Relationship Specialty Start Date End Date Dulce Ross PA [address] [place] [address] PCP - General General Medicine 05/14/25 documented as of this encounter
--- OUTSIDE RECORDS SUMMARY | 2025-06-17 18:10 | XMS_ITS | Encounter Summary ---
Author Organization [facility] Address [address] [place] [address] [place] [address] Phone Care Team Providers Care Guard Rail Installer Name Role Phone Rodolfo Medrano MD Primary Care Provider [phone] Reason for Visit * Reason Comments Medication Refill Encounter Details Date Type Department Care Team (Late st Contact Info) Description 02/25/[address] [facility] PSYCHIATRY 1 [facility] 10th [place] [address] Kamran Vallejo MD, PhD [facility] [address] [place] [address] [email or web address] Medication Refill Social History Tobacco Use Types [...] Description 06/21/2025 9:00 AM EDT Office Visit [facility] Epilepsy Service [address] [place] [address], 8th Floor, [address] [place] [address] Eufemia Caputo MD,MPH,PhD [address] [place] [address] [place] [phone] [email or web address] documented as of this encounter Visit Diagnoses Not on filedocumented in this encounter Care Teams Guard Rail Installer Relationship Specialty Start Date End Date Rodolfo Medrano MD 7 [place] [address] PCP - General Pediatrics 12/04/20 documented as of this encounter Additional Source Comments The information contained in this document represents components of the legal health record. It is not the complete legal health record.[facility]
--- OUTSIDE RECORDS SUMMARY | 2025-06-17 18:10 | XMS_ITS | Encounter Summary ---
Author Organization [facility] Address [address] [place] [address] Care Team Providers Care Facilities Locator Name Role Phone Dulce Ross Primary Care Provider [phone] Encounter Details Date Type Department Care Team (Late st Contact Info) Description 03/27/2025 Scanned Document [facility], [address] [place] [phone] Unknown Unknow Provider Address Social History Tobacco [...] 8:20 AM EDT Office Visit [facility]223 [address] [facility] [address] [place] [phone] Gertrude Dos Santos MD 195 [facility] [address] [place] [address] documented as of this encounter Visit Diagnoses Not on filedocumented in this encounter Care Teams Facilities Locator Relationship Specialty Start Date End Date Dulce Ross PA [address] [place] [address] PCP - General General Medicine 05/14/25 documented as of this encounter
== END 2025-06-17 16:23 | disposition home or self-care (01) ==
LOC: HO.HMCFM 15:52
PROVIDERS: PCP Physician Assistant Medical; Visit Provider Physician Assistant Medical
DX: R00.0 Tachycardia, unspecified (principal); F41.9 Anxiety disorder, unspecified; F44.5 Conversion disorder with seizures or convulsions; N94.6 Dysmenorrhea, unspecified

== ENCOUNTER → 2025-06-17 15:51 | Outpatient (BNVA) | payer BC, SELFPAY | PROVIDERS: PCP Physician Assistant Medical; Visit Provider Physician Assistant Medical | DX: R00.0 Tachycardia, unspecified (principal); F41.9 Anxiety disorder, unspecified; F44.5 Conversion disorder with seizures or convulsions; N94.6 Dysmenorrhea, unspecified; Z13.39 Encounter for screening examination for other mental health and behavioral disorders | CPT/HCPCS: 96127 ==

== ENCOUNTER 2025-08-01 13:36 | Outpatient (AMB) | payer BC, SELFPAY ==
--- NOTE | 2025-08-01 13:07 | MHC.PC.OV ---
Intake Visit Reasons: telehealth med check Intake Note: Jessica presents by telephone for a medication check. [employer] Basis Trader Required: No Is last menstrual period known: Yes Last menstrual period: 08/01/25 Post menopausal: No Patient : No Allergies jin (cherries) Allergy (Verified 08/01/25 13:34) Swelling Tobacco use date assessed: 08/01/25 Dental Screening Dental Screen Date: 08/01/25 Did you have a dental visit in the last 12 months?: Yes Did you have a dental problem in the last 6 months where you did not have access to dental care?: No Was dental information given to patient?: Patient has dentist HPI HPI Comments History of Present Illness Details This is a 19-year-old female with a past medical history of a functional neurologic disorder, anxiety disorder and seizures presenting for follow up. Documented previously: I reviewed notes from Pediatrics. In October of 2020 she had a sudden onset of abnormal head and neck movements in the setting of increased anxiety. She was initially evaluated at the emergency department at [facility] with normal head and neck imaging. 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 She was treated with amoxicillin without resolution. Tics worsened including head banging and behavior changes and problems with speech and hand coordination. She started Prozac and was followed by integrative medicine. 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 In February she began to have seizure-like activity and was referred to Neurology. Differential included autoimmune encephalitis. She had a normal brain MR high and normal as encephalitis panel. She was seen at [facility] fall 2020. PANDAS thought to be unlikely. She was tapered off Prozac and put on fluvoxamine. She started guanfacine and stopped all antibiotics. She began working with occupational therapy. Working diagnosis of functional neurologic disorder. Sought multidisciplinary approach including Psychiatry, PT and OT. Also treated with the [facility] in the past. Attacks worsened by anxiety and stress but not directly caused by anxiety, instead maladaptive responses to major stressors. Since that time she has continued to have seizures once or twice a week. She has new concerns today about her heart rate. For the past couple of months she is experiencing increased heart rate. Heart rate has been as 170 and sustained this for at least 10 minutes. Reports heart rate increases when she stands up and she feels lightheaded and gets chest pain and mild shortness of breath. Patient reports device shows increase in heart rate when she stands by 30 beats per minute. When she was walking in here reports heart rate on her device was between 120-140. She was referred back to [facility] Neurology. She had an MRI of the brain that was reportedly normal, and she did a 5 day EEG which came back normal. The neurologist referred the to the functional neurological department. That appointment is 09/11/25. During seizures he is conscious and able to remain seated, but her head falls down and she has mild convulsions of her extremities sometimes. 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 Continues to get paresthesias in her legs intermittently. She does not feel depressed. Denies SI or HI. Patient restarted fluvoxamine but had increased anxiety which worsened after upping the dose. She was taken off the medication. She also tried Zoloft and fluoxetine. She is seeing therapist weekly in [place], Herlinda Schofielde. Her therapist diagnosed her with ADHD and autism recently. The patient feels some reassurance now that she can try to target these issues and understand how her brain works. She started Lexapro. She denies side effects. She has been on it for a month, and she feels like it is helping with anxiety. She has an appointment with the psychiatrist next month. She saw [facility] for her consult. Holter monitor and echocardiogram were negative aside from recording sinus tachycardia. She is trying to incorporate exercise as recommended by Cardiology. She has a history of psoriasis. She saw [facility], and she was referred to Rheumatology for concerns about psoriatic arthritis. She saw rheumatology [place] in May who brought up concerns about hypermobility. She take Sotyktu. ROS: Eyes: No vision changes, blurry vision, double vision Cardiovascular: See HPI. Neurologic: See HPI. Psychiatric: see HPI [facility] Medical History (Updated 08/01/25 @ 13:53 by TRES Kirkpatrick) ADHD Menstrual cramps Lower extremity weakness Low ferritin Functional neurological symptom disorder with attacks or seizures Seizure disorder Anxiety Psoriasis Mass of soft tissue of neck Thyromegaly Chest pain Tachycardia Family History Maternal Grandfather Hypertension Hyperlipemia Paternal Grandfather Hypertension Brother Diabetes Social History (Updated 06/17/25 @ 16:03 by Lexi De Leon CMA) Housing: House Alcohol intake: never Patient Tobacco Use Status: Never used Tobacco e-Cigarette/Vaping Use: Never Used Second Hand Smoke Exposure: No Patient : No service: No Current occupational status: employed Current occupation: [employer]ist Current occupational exposures/hazards: No Cognitive needs: No Hearing needs: No Vision needs: No Female Reproductive History Menstrual Date of last menstrual period: 08/01/25 Questionnaire Thrive Questionnaire Date Thrive assessed: 02/22/25 MARY JO-7 AMB Questionnaire MARY JO-7 Date MARY JO - 7 assessed: 06/17/25 Source: Developed by Drs. Rodolfo Short, Niya Vallejo, Kevin Alves and colleagues, with an educational marisa from [employer]. Physical exam (Primary Care) Tobacco/Smoking Status: Tobacco use Status Tobacco use date assessed 08/01/25 08/01/25 13:36 Patient Tobacco Use Status Never used Tobacco 08/01/25 13:09 e-Cigarette/Vaping Use Never Used 08/01/25 13:09 Thrive Assessment: Date of Thrive Assessment Date Thrive assessed 02/22/25 08/01/25 13:09 Telehealth Telehealth Telehealth Platform: Telephone Location of provider rendering services: practice address Location of patient: address on file Patient Identification confirmed using: Name, : Yes Telehealth method: voice only Patient verbally consented to treatment: Yes Patient verbally consented to billing insurance company: Yes Patient informed of any privacy concerns related to visit: Yes Minutes spent on Phone/Video with Pt.: 10 Coding Level of Care Code Tele Est Pt Level 3 (23282) Diagnoses Autism F84.0 Attention deficit hyperactivity disorder (ADHD), unspecified ADHD type F90.9 Attention deficit-hyperactivity disorder type: unspecified Tachycardia R00.0 Anxiety F41.9 Functional neurological symptom disorder with attacks or seizures F44.5 Assessment & Plan Assessment & Plan (1) Autism: Code(s): F84.0 - Autistic disorder Category: Medical (2) ADHD: Code(s): F90.9 - Attention-deficit hyperactivity disorder, unspecified type Category: Medical Qualifiers: Attention deficit-hyperactivity disorder type: unspecified Qualified Code(s): F90.9 - Attention-deficit hyperactivity disorder, unspecified type (3) Tachycardia: Code(s): R00.0 - Tachycardia, unspecified Category: Medical Plan: Evaluated by [facility]. Holter monitor and echocardiogram were reassuring. Warning signs warranting ER evaluation reviewed with the patient. Avoid caffeine, stimulants and alcohol. Stay well hydrated throughout the day and eat regular meals. Reviewed the importance of stress reduction and sleep. Treat anxiety as noted below. (4) Anxiety: Code(s): F41.9 - Anxiety disorder, unspecified Category: Medical Plan: TSH normal. She is seeing a therapist. Prior treatment with fluvoxamine, sertraline, fluoxetine. Did not tolerate meds or meds were ineffective. She is doing well with Lexapro. She notices improved anxiety. She has been diagnosed with ADHD and autism recently, and she has an appointment coming up with a psychiatrist in August. If she does want to trial increase Lexapro prior to that she can contact me. (5) Functional neurological symptom disorder with attacks or seizures: Code(s): F44.5 - Conversion disorder with seizures or convulsions Category: Medical Plan: Patient underwent extensive workup and was ultimately given working diagnosis of functional neurologic disorder by [facility] Neurology. Treat anxiety as above. Re-evaluated by [facility] Neurology, and she has an upcoming appointment with a functional Neurology clinic. Plan Follow up in 8 weeks.
--- OUTSIDE RECORDS SUMMARY | 2025-08-01 19:01 | XMS_ITS | Clinical Summary ---
Author Organization [facility] Address [address] [place] [address] Care Team Providers Care Customer Experience Intern Name Role Phone Dulce Whitehead Primary Care Provider [phone] Allergies No known active allergies Medications Desogestrel-Ethi [...] Encounters Date Type Department Care Team Description 07/10/2025 8:20 AM EDT [facility] Visit [facility], [facility] [address] [place] [phone] Gertrude Dos Santos MD Arthralgia, unspecified joint (Primary Dx); Hypermobility arthralgia 05/30/2025 Scanned Document [facility], [address], [facility] [address] [place] [phone] Unknown 05/24/2025 Scanned Document [facility], [address], [address] [place] [phone] Unknown 05/14/2025 9:00 AM EDT Office Visit [facility] [address], [address] [place] [phone] Gertrude Dos Santos MD Arthralgia, unspecified joint (Primary Dx); Psoriasis ; Mid back pain from Last 3 Months Family History Medical [...] 2024 12:17 PM EDT Plan of Treatment Health Maintenance Due [...] AM EDT) EDMOND Screen, IFA NEGATIVE NEGATIVE [facility]/ [facility], Comment: EDMOND IFA is a first line [...] AC-0: Negative International Consensus on EDMOND Patterns https://doi.org/10.1515/zyds-5328-0948 For additional information, please refer to http://education.Anomalous Networks.eSNF/faq/LGB163 (This link is being provided for informational/educational purposes only.) DNA (ds) Antibody Screen NEGATIVE NEGATIVE [facility], Chromatin (Nucleosomal) Antibody <1.0 NEG <1.0 NEGATIVE [facility]/ [facility], Sm (Pritchett) Antibody <1.0 NEG <1.0 NEGATIVE AI [facility]/ [facility], Sm/FINANCIAL ANALYST Antibody <1.0 NEG <1.0 NEGATIVE AI [facility]/ [facility], FINANCIAL ANALYST <1.0 NEG <1.0 NEGATIVE AI [facility], Ro (SSA) Antibody <1.0 NEG <1.0 NEGATIVE AI [facility]/ [facility], La (SSB) Antibody <1.0 NEG <1.0 NEGATIVE AI [facility]/ [facility], Scl-70 Antibody <1.0 NEG <1.0 NEGATIVE AI [facility]/ [facility], Tamie-1 Antibody <1.0 NEG <1.0 NEGATIVE AI [facility]/ [facility], Centromere Antibody <1.0 NEG <1.0 NEGATIVE AI [facility]/ [facility], Complement C3 157 83 - 193 mg/dL [facility]/ [facility], Complement C4 22 15 - 57 mg/dL [facility]/ [facility], Cardiolipin IgA Antibody <2.0 APL-U/mL [facility]/ [facility], Comment: Value Interpretation ----- <20.0 Antibody not detected > or = 20.0 Antibody detected Cardiolipin IgG Antibody <2.0 GPL-U/mL [facility]/ [facility], Comment: Value Interpretation ----- <20.0 Antibody not detected > or = 20.0 Antibody detected Cardiolipin IgM Antibody <2.0 MPL-U/mL [facility]/ [facility], Comment: Value Interpretation ----- <20.0 Antibody not detected > or = 20.0 Antibody detected B2 Glycoprotein I (Iga)Ab <2.0 U/mL [facility]/ [facility], Comment: Value Interpretation ----- <20.0 Antibody not detected > or = 20.0 Antibody detected B2 Glycoprotein I (Igg)Ab <2.0 U/mL [facility]/ [facility], Comment: Value Interpretation ----- <20.0 Antibody not detected > or = 20.0 Antibody detected B2 Glycoprotein I (Igm)Ab <2.0 U/mL [facility]/ [facility], Comment: The antiphospholipid antibody syndrome (APS) is [...] aging. For additional information, please refer to http://education.Tujia/faq/FVN749 (This link is being provided for informational/educational purposes only.) Value Interpretation ----- <20.0 Antibody not detected > or = 20.0 Antibody detected Rheumatoid Factor IgA <5 U [facility]/ [facility], Comment: Reference Range: <=6 NEGATIVE >6 POSITIVE Rheumatoid Factor IgG <5 U [facility]/ [facility], Comment: Reference Range: <=6 NEGATIVE >6 POSITIVE Rheumatoid Factor IgM <5 U [facility]/ [facility], Comment: Reference Range: <=6 NEGATIVE >6 POSITIVE CCP IgG Antibodies <16 Units [facility]/ [facility], Comment: Reference Range: NEGATIVE: <20 WEAK POSITIVE: 20-39 MODERATE POSITIVE: 40-59 STRONG POSITIVE >59 Mutated Citrullinated Vimentin (MCV) AB <20 <20 U/mL [facility]/ [facility], Comment: Anti-mutated citrullinated vimentin antibody may be used as a second-line marker of rheumatoid arthritis, in addition to rheumatoid factor and anti-cyclic citrullinated peptide (CCP). Thyroid Peroxidase Antibody <1 <9 IU/mL [facility]/ [facility], Blood Blood specimen / Unknown 05/20/2025 10:54 AM EDT 05/20/2025 10:56 AM EDT Narrative [facility] - 05/28/2025 2:41 PM EDT FASTING:NO FASTING: NO us Gertrude Dos Santos MD LAB BLOOD ORDERABLES Final R esult [facility], [address] [place] [address] * HLA - B27 Antigen (05/20/2025 10:54 AM EDT) HLA - B27 Antigen Negative Negative [facility] [place] Blood Blood specimen / Unknown 05/20/2025 10:54 AM EDT 05/20/2025 10:56 AM EDT Narrative [facility] - 05/28/2025 2:41 PM EDT FASTING:NO FASTING: NO Gertrude Dos Santos MD LAB BLOOD ORDERABLES Final R esult [facility]/[place] [address] [facility] [place] [address] * Erythrocyte Sedimentation Rate (ESR) (05/20/2025 10:54 AM EDT) Erythrocyte Sediment Rate (ESR) 17 < OR = 20 mm/h CodeBaby Blood Blood specimen / Unknown 05/20/2025 10:54 AM EDT 05/20/2025 10:56 AM EDT Narrative [facility] - 05/28/2025 2:41 PM EDT FASTING:NO FASTING: NO us Gertrude Dos Santos MD LAB BLOOD ORDERABLES Final R esult Performing Organization Address [facility]/ZIP Co de Phone Number eshtery [address] [place] [phone] * RHEUMATOID FACTOR (05/20/2025 10:54 AM EDT) Rheumatoid Factor <10 <14 IU/mL CodeBaby Blood Blood specimen / Unknown 05/20/2025 10:54 AM EDT 05/20/2025 10:56 AM EDT bubl - 05/28/2025 2:41 PM EDT FASTING:NO FASTING: NO us Gertrude Dos Santos MD LAB BLOOD ORDERABLES Final R esult Performing Organization Address [facility] de Phone Number eshtery [address] [place] [phone] * C-REACTIVE PROTEIN (05/20/2025 10:54 AM EDT) C-Reactive Protein <3.0 <8.0 mg/L CodeBaby Blood Blood specimen / Unknown 05/20/2025 10:54 AM EDT 05/20/2025 10:56 AM EDT bubl - 05/28/2025 2:41 PM EDT FASTING:NO FASTING: NO us Gertrude Dos Santos MD LAB BLOOD ORDERABLES Final R esult Performing Organization Address [facility]/ZIP Co de Phone Number eshtery [address] [place] [phone] * XR RT KNEE 1 OR 2 VIEWS (05/16/2025 3:16 PM EDT) Anatomical Region Laterality Modality Other 05/16/2025 3:15 PM EDT 05/16/2025 3:15 PM EDT Impressions 05/17/2025 12:42 PM EDT Unremarkable examination. Electronically signed by: Jason Wagner MD 05/17/2025 12:42 PM EDT RP Thank you for referring your patient to us, Jason Wagner MD [id number] (Electronically Signed - 05/17/2025 12:42) Copy: DULCE WHITEHEAD [address] [address] PATIENT , Narrative 05/17/2025 12:42 [...] Wagner MD 05/17/2025 12:42 PM EDT RPWorkstation: [id number] Thank you for referring your patient to us, Jason Wagner MD [id number] (Electronically Signed - 05/17/2025 12:42) Copy: [facility] [address] [place], [place] [id number] PATIENT , Gertrude Dos Santos MD IMG [...] your patient to us, Jason Wagner MD [id number] (Electronically Signed - 05/17/2025 12:42) Copy: [facility] [address] [place] [address] PATIENT , Narrative 05/17/2025 12:42 PM EDT [...] Wagner MD 05/17/2025 12:42 PM EDT RPWorkstation: [id number] Thank you for referring your patient to us, Jason Wagner MD [id number] (Electronically Signed - 05/17/2025 12:42) Copy: [facility] [address] [place] [address] PATIENT , us Gertrude Dos Santos MD [...] your patient to us, Jason Wagner MD [id number] (Electronically Signed - 05/17/2025 12:41) Copy: [facility] [address] [place] [address] PATIENT , Narrative 05/17/2025 12:41 PM EDT [...] Wagner MD 05/17/2025 12:41 PM EDT RPWorkstation: [id number] Thank you for referring your patient to us, Jason Wagner MD [id number] (Electronically Signed - 05/17/2025 12:41) Copy: [facility] [address] [place] [address] PATIENT , us Gertrude Dos Santos MD [...] your patient to us, Jason Wagner MD [id number] (Electronically Signed - 05/17/2025 12:41) Copy: [facility] [address] [place] [address] PATIENT , Narrative 05/17/2025 12:41 PM EDT [...] Wagner MD 05/17/2025 12:41 PM EDT RPWorkstation: [id number] Thank you for referring your patient to us, Jason Wagner MD [id number] (Electronically Signed - 05/17/2025 12:41) Copy: [facility] [address] [place] [address] PATIENT , us Gertrude Dos Santos [...] your patient to us, Jason Wagner MD [id number] (Electronically Signed - 05/17/2025 12:42) Copy: [facility] [address] [place], [place] [id number] PATIENT , Narrative 05/17/2025 12:42 PM EDT [...] Wagner MD 05/17/2025 12:42 PM EDT RPWorkstation: [id number] Thank you for referring your patient to us, Jason Wagner MD [id number] (Electronically Signed - 05/17/2025 12:42) Copy: [facility] [address] [place], [place] [id number] PATIENT , us Gertrude Dos Santos MD IMG DIAGNOSTIC IMAGING ORDER SANT[place]H Final Result from Last 3 Months Insurance [facility] - HMO Care Teams Customer Experience Intern Relationship Specialty Start Date End Date Dulce Whitehead PA [address] [place] [address] PCP - General General Medicine 05/14/25
--- OUTSIDE RECORDS SUMMARY | 2025-08-01 19:01 | XMS_ITS | Encounter Summary ---
Author Organization [facility] Address [address] [place] [address] Care Team Providers Care Coke Drawer Name Role Phone Dulce Ross Primary Care Provider [phone] Encounter Details Date Type Department Care Team (Late st Contact Info) Description 03/27/2025 Scanned Document [facility], [address], [address] [place] [address] Unknown Unknow Provider Address Social History Tobacco [...] on filedocumented in this encounter Care Teams Coke Drawer Relationship Specialty Start Date End Date Dulce Ross PA [address] [place] [address] PCP - General General Medicine 05/14/25 documented as of this encounter
--- OUTSIDE RECORDS SUMMARY | 2025-08-01 19:01 | XMS_ITS | Encounter Summary ---
Author Organization [facility] Address [address] [place] [address] Care Team Providers Care Fire Coordinator Name Role Phone Dulce Ross Primary Care Provider [phone] Encounter Details Date Type Department Care Team (Late st Contact Info) Description 03/28/2025 Scanned Document [facility], [address], [address] [place] [address] Unknown Unknow Provider Address Social [...] on filedocumented in this encounter Care Teams Fire Coordinator Relationship Specialty Start Date End Date Dulce Ross PA [address] [place] [address] PCP - General General Medicine 05/14/25 documented as of this encounter
--- OUTSIDE RECORDS SUMMARY | 2025-08-01 19:01 | XMS_ITS | Encounter Summary ---
Author Organization [facility] Address [address] [place] [address] Care Team Providers Care Rehab/Pre Vocational Counselor Name Role Phone Dulce Ross Primary Care Provider Encounter Details Date Type Department Care Team (Late st Contact Info) Description 03/27/2025 Scanned Document [facility], [address], [address] [place] [address] Unknown Unknow Provider Address Social [...] on filedocumented in this encounter Care Teams Rehab/Pre Vocational Counselor Relationship Specialty Start Date End Date Dulce Ross PA [address] [place] [address] PCP - General General Medicine 05/14/25 documented as of this encounter
--- OUTSIDE RECORDS SUMMARY | 2025-08-01 19:01 | XMS_ITS | Clinical Summary ---
Author Organization [facility] Address [address] [place] [address] Care Team Providers Care Window Glass Cutter Off Name Role Phone Rodolfo Medrano MD Primary Care Provider [phone] Source Comments Please note that some or [...] so, obtain the minor's consent prior to disclosure.[facility] Allergies Active Allergy Reactions Criticality Noted Date Comments Cat Dander 04/03/2021 Dog Dander 04/03/2021 Tree And Shrub Pollen Itching 04/03/2021 [place] Pollen Itching 04/03/2021 Medications atovaquone (MEPRON) 750 [...] about your child you'd like help [facility]? Not on file 05/27/2023 Share good news [...] this topic Insurance BLUE CROSS Care Teams Window Glass Cutter Off Relationship Specialty Start Date End Date Rodolfo Medrano MD [address] [place] [address] [phone] PCP - General 01/02/21
--- OUTSIDE RECORDS SUMMARY | 2025-08-01 19:01 | XMS_ITS | Encounter Summary ---
Author Organization [facility] Address [address] [place] [address] Care Team Providers Care Corporate Compliance Officer Name Role Phone Dulce Ross Primary Care Provider [phone] Encounter Details Date Type Department Care Team (Late st Contact Info) Description 05/30/2025 Scanned Document [facility], [address], [address] [place] [address] Unknown Unknow Provider Address Social [...] on filedocumented in this encounter Care Teams Corporate Compliance Officer Relationship Specialty Start Date End Date Dulce Ross PA [address] [place] [address] PCP - General General Medicine 05/14/25 documented as of this encounter
--- OUTSIDE RECORDS SUMMARY | 2025-08-01 19:02 | XMS_ITS | Encounter Summary ---
Author Organization [facility] Address [address] [place] [address] Care Team Providers Care Vocational Ed Instructor Name Role Phone Dulce Ross Primary Care Provider [phone] Encounter Details Date Type Department Care Team (Late st Contact Info) Description 05/24/2025 Scanned Document [facility], [address], [address] [place] [address] Unknown Unknow Provider Address Social [...] on filedocumented in this encounter Care Teams Vocational Ed Instructor Relationship Specialty Start Date End Date Dulce Ross PA [address] [place] [address] PCP - General General Medicine 05/14/25 documented as of this encounter
== END 2025-08-01 14:09 | disposition home or self-care (01) ==
LOC: HO.HMCFM 13:36
PROVIDERS: PCP Physician Assistant Medical; Visit Provider Physician Assistant Medical
DX: F90.9 Attention-deficit hyperactivity disorder, unspecified type (principal); F84.0 Autistic disorder; R00.0 Tachycardia, unspecified; F41.9 Anxiety disorder, unspecified; F44.5 Conversion disorder with seizures or convulsions